=== PATIENT | male | born 1950 | race Caucasian/White ===

== ENCOUNTER 2017-03-04 08:00 | Emergency (ER) | payer MEDICARE ==
[2017-03-04 08:45] LABS: #Basophils 0.1 thou/uL (0.0-0.2); #Eosinphils 0.3 thou/uL (0.0-0.7); #Lymphocytes 1.4 thou/uL (1.20-3.40); #Monocytes 0.9 thou/uL (0.11-0.59); #Neutrophils 8.3 thou/uL (1.40-6.50); %Basophils 0.6 % (0.0-1.0); %Eosinophils 2.3 % (0.0-10.0); %Lymphocytes 12.3 % (21.0-51.0); %Monocytes 8.1 % (0.0-10.0); Hematocrit 35.1 % (42.0-52.0); Mean Platelet Volume 7.2 fL (7.4-10.4); Red Blood Cell (RBC) Count 4.08 mill/uL (4.70-6.10); White Blood Cell (WBC) Count 10.9 thou/uL (4.8-10.8)
[2017-03-04 08:49] LABS: PTT 42.8 SEC (22.9-36.1); Prothrombin Time 20.2 SEC (12.0-14.7)
[2017-03-04 09:04] LABS: ALT (SGPT) 39 U/L (8-55); AST (SGOT) 30 U/L (5-34); Alkaline Phosphatase 165 U/L (40-150); Anion Gap 14 mmol/L (10-20); BUN (Urea Nitrogen) 38 mg/dL (8.4-25.7); Bilirubin, Total 0.5 mg/dL (0.2-1.2); Calc. Creatinine Clearance 0 mL/min (70-130); Calcium 9.5 mg/dL (7.8-10.44); Carbon Dioxide 22 mmol/L (23-31); Chloride 109 mmol/L (98-107); Estimated GFR-MDRD 24; Globulin 3.6 g/dL (2.4-3.5); Protein, Total 7.4 g/dL (5.8-8.1)
[2017-03-04] MEDS ORDERED: Ondansetron ODT 8 MG TAB ONE (10:29)
--- NOTE | 2017-03-04 10:49 | RAD ---
RIGHT HAND 3 VIEWS: Date: 03/04/17 HISTORY: Swelling this morning. Patient has a history of recent blood clot removal. COMPARISON: None. FINDINGS: No fracture. No cortical irregularity. No periosteal reaction. There are degenerative changes involvi ng the first through fifth distal interphalangeal joints. IMPRESSION: Soft tissue swelling. POS: NETTA
--- NOTE | 2017-03-04 12:41 | ULT ---
VENOUS ULTRASOUND RIGHT UPPER EXTREMITY: Date: 03/04/17 INDICATION: Edema. History of deep venous thrombosis. FINDINGS: Appropriate compressibility and flow within the imaged deep vein system of the right upper extremity demonstrated. Doppler, color flow, and spectral analysis performed in addition to Javier scale imaging. IMPRESSION: No deep venous thrombosis imaged within the right upper extremity. POS: NETTA
== END 2017-03-04 11:06 | disposition home or self-care (01) ==
LOC: ERS 08:00
DX: M79.89 Other specified soft tissue disorders (principal); I25.10 Atherosclerotic heart disease of native coronary artery without angina pectoris; I48.91 Unspecified atrial fibrillation; E11.9 Type 2 diabetes mellitus without complications; I10 Essential (primary) hypertension; F43.10 Post-traumatic stress disorder, unspecified; Z79.82 Long term (current) use of aspirin; Z79.891 Long term (current) use of opiate analgesic; Z79.01 Long term (current) use of anticoagulants; Z79.899 Other long term (current) drug therapy
CPT/HCPCS: 36415; 80053; 85025; 85610; 85730; 86140

== ENCOUNTER 2017-06-09 18:45 | Emergency (ER) | payer MEDICARE ==
--- NOTE | 2017-06-09 20:30 | RAD ---
LEFT HAND THREE VIEW 06/09/17 HISTORY: Fall. COMPARISON: None. FINDINGS: There is a small piece of bone adjacent to the distal pole of the scaphoid. This is seen on the PA an d the oblique view, although not on the lateral view. This does not appear acute. Moderate degenerative disease in the interphalangeal joints of the digits. Mild vascular calcifications. IMPRESSION: Chronic findings. No displaced fracture or malalignment is appreciated. POS: HOME
== END 2017-06-09 19:40 | disposition home or self-care (01) ==
LOC: SCSER 18:45
DX: S60.212A Contusion of left wrist, initial encounter (principal); I25.10 Atherosclerotic heart disease of native coronary artery without angina pectoris; I48.91 Unspecified atrial fibrillation; E11.9 Type 2 diabetes mellitus without complications; I10 Essential (primary) hypertension; F43.10 Post-traumatic stress disorder, unspecified; Z79.82 Long term (current) use of aspirin; Z79.899 Other long term (current) drug therapy; Z79.01 Long term (current) use of anticoagulants; W19.XXXA Unspecified fall, initial encounter

== ENCOUNTER 2017-10-30 08:25 | Outpatient (CLI) | payer MEDICARE | END 2017-10-30 08:26 | disposition home or self-care (01) | LOC: BICMRI 08:25 | PROVIDERS: ATTEND Otolaryngology | DX: H90.3 Sensorineural hearing loss, bilateral (principal); J34.1 Cyst and mucocele of nose and nasal sinus; G93.89 Other specified disorders of brain | CPT/HCPCS: 70551; 82565 ==

== ENCOUNTER 2018-04-14 17:47 | Inpatient (IN) | payer MEDICARE ==
[2018-04-14 18:18] LABS: #Eosinphils 0.4 thou/uL (0.0-0.7); #Lymphocytes 1.6 thou/uL (1.20-3.40); #Neutrophils 7.5 thou/uL (1.40-6.50); %Basophils 0.4 % (0.0-1.0); %Eosinophils 3.3 % (0.0-10.0); %Lymphocytes 15.4 % (21.0-51.0); %Monocytes 9.9 % (0.0-10.0); Hemoglobin 7.3 g/dL (14.0-18.0); Mean Corpuscular HGB CONC 31.9 g/dL (32.0-36.0); Mean Corpuscular Hemoglobin 26.2 pg (27.0-31.0); Mean Corpuscular Volume 82.1 fL (78.0-98.0); Mean Platelet Volume 7.4 fL (7.4-10.4); Platelet Count 300 thou/uL (130-400); RBC Distribution Width 14.7 % (11.5-14.5); Red Blood Cell (RBC) Count 2.79 mill/uL (4.70-6.10); White Blood Cell (WBC) Count 10.6 thou/uL (4.8-10.8)
[2018-04-14 18:42] LABS: ALT (SGPT) 18 U/L (8-55); AST (SGOT) 15 U/L (5-34); Albumin 3.9 g/dL (3.4-4.8); Alkaline Phosphatase 136 U/L (40-150); Anion Gap 15 mmol/L (10-20); BUN (Urea Nitrogen) 55 mg/dL (8.4-25.7); Bilirubin, Total 0.4 mg/dL (0.2-1.2); CK (CPK) 62 U/L (30-200); Calc. Creatinine Clearance 0 mL/min (70-130); Carbon Dioxide 14 mmol/L (23-31); Chloride 116 mmol/L (98-107); Estimated GFR-MDRD 20; Glucose 141 mg/dL (80-115); Potassium 3.9 mmol/L (3.5-5.1); Protein, Total 6.9 g/dL (5.8-8.1); Sodium 141 mmol/L (136-145)
--- NOTE | 2018-04-14 18:56 | RAD ---
PORTABLE CHEST: 04/14/2018 PROVIDED CLINICAL HISTORY: Atrial fibrillation. COMPARISON: 04/15/2016 FINDINGS: The cardiac silhouette remains enlarged. Prominence of the pulmonary vasculature and pulmonary inter stitium. No focal consolidation, pleural fluid, or pneumothorax apparent. IMPRESSION: Cardiomegaly and findings suggesting congestive failure. POS: SONNY
[2018-04-14 19:00] LABS: Bilirubin Negative (Negative); Blood, Urine Negative (Negative); Clarity CLOUDY (Clear); Glucose, Urine (Dipstick) Negative (Negative); Leukocyte Large (Negative); Nitrite Negative (Negative); Protein, Urine (Dipstick) 30 mg/dL (Neg-Trace); Specific Gravity, Urine 1.012 (1.002-1.036); Urobilinogen 0.2 mg/dL (0.2-1.0); pH, Urine 5.5 (5.0-9.0)
[2018-04-14 19:02] LABS: Bacteria/HPF 2+ HPF (None Seen); Hyaline Casts/LPF 0-3 HYALINE CAST LPF (0-3 Hyaline); RBC/HPF 0-3 HPF (0-3); Squamous Epithelial 0-3 HPF (0-3); Yeast-AUWi Flag 30.2 (0-25.0)
[2018-04-14 19:12] LABS: Yeast-All Forms None Seen HPF (None Seen)
[2018-04-14] MEDS ORDERED: Dextrose 5% in Water 1,000 ML IV PRN (22:23)
[2018-04-14] MEDS ORDERED: HumaLOG 300 UNITS/3 ML VIAL SC PRN (22:23)
[2018-04-14] MEDS ORDERED: Dextrose 50% Abboject 50 ML SYRINGE SLOW IVP PRN (22:23)
[2018-04-14] MEDS ORDERED: Ondansetron ODT 4 MG TAB PO PRN (22:26)
[2018-04-14] MEDS ORDERED: Pantoprazole 40 MG VIAL IVP SCH (22:30)
[2018-04-14] MEDS ORDERED: traMADol HCl 50 MG TAB PO PRN (23:42)
[2018-04-14] MEDS ORDERED: Furosemide 20 MG TAB PO SCH (23:42)
--- NOTE | 2018-04-14 23:53 | HP ---
PRIMARY CARE PHYSICIAN: Dr. Guzman. CHIEF COMPLAINT: Weakness, dizziness. HISTORY OF PRESENT ILLNESS: Mr. Silva is a very pleasant 67-year-old male, who reports to the emergency room today with weakness that has lasted about 7 to 10 days. He denies any pain. He denies any injury or trauma. Reports that the last thing that took place prior to the symptoms was that he had his flu shot about 10 days ago. Denies any fever or any flu symptoms. Just reports a generalized weakness. Reports increasing dyspnea on exertion. Reports when he tries to get up and walk any distance, he has to sit down. He fatigues easily. He denies any changes to any eating or any stool changes. Does report that he has been on Xarelto for the last 2 years after he had a DVT in his right arm. Reports chronic kidney disease stage 4 that he follows with Dr. García. Reports that it has been maintained at stage 4 for the last [address] García in the last months. Reports that his hemoglobin was on the "low side." reports that it looks more pale than typical. Guaiac stool performed in the emergency room does report positive for occult blood. The patient's hemoglobin in the emergency room was also found to be 7.3, which is a drop from 11.5 on 08/27/2017. Based on symptoms and findings, the patient was admitted to the observation unit for further management. PAST MEDICAL HISTORY: 1. DVT to right arm. 2. Chronic kidney disease stage 4. 3. Diabetes mellitus type 2. 4. History of chronic atrial fibrillation, status post ablation. 5. History of Pseudomonas urinary tract infections in the past. 6. Hypertension. 7. Dyslipidemia. 8. Obesity. 9. History of TIA. PAST SURGICAL HISTORY: Ablation, persistent atrial fib, left knee surgery for meniscal repair, history of tonsillectomy, history of LASIK surgery in both eyes. He did have an embolectomy of the right brachial artery in April of 2016. FAMILY HISTORY: Unknown. Reports being adopted and is unfamiliar with his family history. 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 Smokes cigars. Drinks occasionally once or twice a week. He is , has 3 children. Otherwise retired and denies any drug use. ALLERGIES: TYLENOL AND CINNAMON. HOME MEDICATIONS: Include the following; 1. Lipitor 40 mg once a day. 2. Tramadol 50 mg q.4 hours as needed. 3. Xarelto 10 mg p.o. once a day. 4. Aspirin 81 mg p.o. daily. 5. Lasix 20 mg daily. 6. Diltiazem 120 mg p.o. daily. 7. Carvedilol 12.5 mg b.i.d. 8. Lantus 30 units subcu once a day. 9. Losartan 25 mg p.o. once a day. 10. Amlodipine 10 mg once a day. 11. Calcitriol 0.5 mg once a day. 12. Hydralazine 100 mg p.o. once a day. 13. Iron 27 mg p.o. daily. 14. Ambien 5 mg p.o. as needed. REVIEW OF SYSTEMS: CONSTITUTIONAL: The patient denies chills or fever. Does report generalized weakness. EYES: Denies eye pain, eye changes, vision changes. ENT: Denies sore throat. Reports a chronic rhinorrhea. CARDIOVASCULAR: Denies chest pain or palpitations. RESPIRATORY: Denies cough. Denies shortness of breath. Does report some TRAN. GASTROINTESTINAL: Denies any abdominal pain. Denies any constipation, diarrhea , nausea, vomiting. Denies any stool changes. GENITOURINARY: Male. Denies dysuria or hematuria. MUSCULOSKELETAL: Denies fall, injury, neck pain. SKIN: reports pallor. NEUROLOGIC: Denies a headache, any weakness, numbness, tingling. PHYSICAL EXAMINATION: VITAL SIGNS: Blood pressure 138/65, pulse is 72, respirations 20, temp is 98.3, pulse ox is 96% on room air. CONSTITUTIONAL: The patient appears nontoxic, appears pain free, is alert and oriented to person, place, and time. HEENT: Head is atraumatic and normocephalic. Eyes; normal to inspection. Extraocular muscles are intact. ENT; pharynx exam is normal. Mucous membranes are moist. Mouth exam is normal. NECK: Normal range of motion. Trachea is midline. No tenderness. RESPIRATORY: Chest, no respiratory distress. Breath sounds are clear. CARDIOVASCULAR: Regular rate and rhythm. Heart sounds are normal. ABDOMEN: Bowel sounds are heard. No tenderness on palpation. BACK: Normal inspection. Normal range of motion. No tenderness. EXTREMITIES: Upper extremities, motor strength is normal. Sensation intact. Radial pulses normal bilaterally. Lower extremities, normal range of motion. Motor strength is normal. Sensation intact. Pedal pulses equal bilaterally. Trace edema is noted bilaterally. NEUROLOGIC: Oriented to person, place, and time. Speech is normal. Gait is normal. SKIN: Warm, dry, normal in color. No rash. DIAGNOSTIC DATA: EKG, normal sinus rhythm, beats per minute is 61. Conduction is normal. ST segments are normal. T-waves are normal. Lamont is normal. RADIOLOGY: Cardiomegaly, findings suggestive of congestive heart failure. PERTINENT LABS: Patient is B positive. Occult blood is positive. UA, positive for leukocytes, white blood cell count, bacteria +2. We will send that off for culture. BNP is 199. CK is 62. Sodium 141, potassium 3.9, chloride 116, BUN is 55, creatinine is 3.11, estimated GFR is 20, glucose is 141. White blood cell count is 10.6, red blood cell count is 2.79, hemoglobin 7.3, hematocrit 22.9, and platelet count is 300. ASSESSMENT AND PLAN: 1. Symptomatic anemia. Hemoglobin dropped to 7.3 from 11, six months ago. We will hold Xarelto. We will infuse 1 unit of packed red blood cells. We will give Protonix b.i.d. In light of positive occult blood, we will ask GI to consult. 2. Gastrointestinal bleed. Plan as above. We will also obtain iron, ferritin levels in the morning. We will repeat CBC after the blood has infused. 3. Hypertension. We will continue home medication. 4. Diabetes. We will continue home insulin. Check blood sugar before meals and at bedtime. We will add a mild sliding scale insulin as needed for coverage. 5. Chronic kidney disease. GFR appears stable. We will continue to monitor. We will involve Dr. García as necessary. 6. CHF, we will monitor, give lasix tonight if he hasn't had his daily dose 7. UA positive for WBC, leukocytes, bacteria. Will send for culture and start Rocephin daily. Hospital course is dependent on clinical findings. Job ID: [id number] [facility]
[2018-04-14] MEDS ORDERED: Zolpidem Tartrate 5 MG TAB PO PRN (23:59)
[2018-04-15 00:22] VITALS: BMI 41.5
[2018-04-15] MEDS ORDERED: Carvedilol 6.25 MG TAB PO SCH ×2 (00:45→09:00)
[2018-04-15] MEDS ORDERED: hydrALAZINE 25 MG TAB PO SCH ×2 (00:45→09:00)
[2018-04-15] MEDS ORDERED: Furosemide 20 MG TAB PO SCH ×2 (00:45→18:00)
[2018-04-15] MEDS: cefTRIAXone\\ROCEPHIN 1 GM in Sodium Chloride 0.9% 100 ML IVPB SCH ×2 (01:16→23:27)
[2018-04-15 02:21] LABS: #Basophils 0.1 thou/uL (0.0-0.2); #Eosinphils 0.3 thou/uL (0.0-0.7); #Lymphocytes 1.2 thou/uL (1.20-3.40); %Basophils 0.8 % (0.0-1.0); %Eosinophils 2.7 % (0.0-10.0); %Lymphocytes 11.7 % (21.0-51.0); %Monocytes 9.3 % (0.0-10.0); %Neutrophils 75.5 % (42.0-75.0); Hemoglobin 7.6 g/dL (14.0-18.0); Mean Corpuscular HGB CONC 31.3 g/dL (32.0-36.0); Mean Corpuscular Hemoglobin 26.8 pg (27.0-31.0); Mean Corpuscular Volume 85.5 fL (78.0-98.0); Mean Platelet Volume 7.1 fL (7.4-10.4); Platelet Count 246 thou/uL (130-400); RBC Distribution Width 14.4 % (11.5-14.5); Red Blood Cell (RBC) Count 2.83 mill/uL (4.70-6.10); White Blood Cell (WBC) Count 10.6 thou/uL (4.8-10.8)
[2018-04-15 02:58] LABS: ALT (SGPT) 16 U/L (8-55); AST (SGOT) 11 U/L (5-34); Albumin 3.3 g/dL (3.4-4.8); Alkaline Phosphatase 113 U/L (40-150); Anion Gap 14 mmol/L (10-20); BUN (Urea Nitrogen) 50 mg/dL (8.4-25.7); Bilirubin, Total 0.4 mg/dL (0.2-1.2); Calc. Creatinine Clearance 47 mL/min (70-130); Calcium 8.3 mg/dL (7.8-10.44); Carbon Dioxide 14 mmol/L (23-31); Chloride 118 mmol/L (98-107); Estimated GFR-MDRD 21; Globulin 2.4 g/dL (2.4-3.5); Glucose 150 mg/dL (80-115); Iron 23 ug/dL (65-175); Iron Binding Capacity, Total 334 mcg/dL (261-462); Potassium 3.6 mmol/L (3.5-5.1); Protein, Total 5.7 g/dL (5.8-8.1); Sodium 142 mmol/L (136-145)
[2018-04-15 06:33] LABS: Hemoglobin 7.5 g/dL (14.0-18.0)
[2018-04-15] MEDS: Pantoprazole 40 MG VIAL IVP SCH ×2 (08:55→20:59)
[2018-04-15] MEDS: Insulin Glargine 30 UNITS in Pre-Filled Syringe 1 EACH SC SCH (09:00)
[2018-04-15] MEDS: Ferrous Sulfate 325 MG TAB PO SCH (09:00)
[2018-04-15] MEDS: Loratadine 10 MG TAB PO SCH (09:00)
[2018-04-15] MEDS ORDERED: Prevnar 13-Val Conj/PF 0.5 ML SYRINGE IM ONE (09:00)
[2018-04-15] MEDS ORDERED: Amlodipine 10 MG TAB PO SCH (09:00)
[2018-04-15] MEDS ORDERED: Losartan 25 MG TAB PO SCH (09:00)
[2018-04-15] MEDS ORDERED: Aspirin 81 mg Enteric Coated Tablet PO SCH (09:00)
[2018-04-15] MEDS ORDERED: INSULIN GLARGINE HUM REC ANLOG 30 UNIT SC SCH (09:00)
[2018-04-15] MEDS ORDERED: Calcitriol 0.25 MCG CAP PO SCH (09:00)
[2018-04-15 12:32] LABS: Hemoglobin 7.9 g/dL (14.0-18.0)
--- NOTE | 2018-04-15 14:12 | PDOC.PN ---
- Subjective Encounter Start Date: 04/15/18 Encounter Start Time: 14:11 Patient lying in bed, he reports feeling better today. Hgb improved s/p unit of PRBC, 7.9 this morning. Cr improved but elevated at 2.99. He denies chest pain, shortness of breath or abdominal pain. - Objective MAR Reviewed: Yes Vital Signs & Weight: Vital Signs (12 hours) Temp Pulse Resp BP BP Pulse Ox 04/15/18 11:03 97.5 F L 66 20 142/65 H 97 04/15/18 08:02 98.1 F 64 20 147/67 H 97 04/15/18 05:57 62 146/67 H 04/15/18 04:20 98.7 F 61 18 109/74 97 Weight Weight 297 lb 9.6 oz I&O: 04/14/18 04/15/18 04/16/18 06:59 06:59 06:59 Intake Total 1010 Output Total 975 Balance 35 Result Diagrams: 04/15/18 12:04 04/15/18 02:11 Additional Labs: Accuchecks 04/15/18 04/15/18 11:07 05:57 POC Glucose 114 H 120 H Radiology Reviewed by me: Yes Phys Exam - Physical Examination Constitutional: NAD HEENT: PERRLA, moist MMs, oral pharynx no lesions Neck: no nodes, no JVD, supple Respiratory: no wheezing, no rales, no rhonchi, clear to auscultation bilateral Cardiovascular: RRR, no significant murmur, no rub Gastrointestinal: soft, non-tender, no distention, positive bowel sounds obese Musculoskeletal: no edema, pulses present Neurological: non-focal, normal sensation, moves all 4 limbs Lymphatic: no nodes Psychiatric: normal affect, A&O x 3 Skin: no rash, normal turgor, cap refill <2 seconds Dx/Plan (1) GI bleed Code(s): K92.2 - GASTROINTESTINAL HEMORRHAGE, UNSPECIFIED Status: Acute (2) CKD stage 4 due to type 2 diabetes mellitus Code(s): E11.22 - TYPE 2 DIABETES MELLITUS W DIABETIC CHRONIC KIDNEY DISEASE; N18.4 - CHRONIC KIDNEY DISEASE, STAGE 4 (SEVERE) Status: Acute (3) UTI (lower urinary tract infection) Code(s): N39.0 - URINARY TRACT INFECTION, SITE NOT SPECIFIED Status: Acute (4) HTN (hypertension) Code(s): I10 - ESSENTIAL (PRIMARY) HYPERTENSION Status: Chronic Qualifiers: Hypertension type: essential hypertension Qualified Code(s): I10 - Essential (primary) hypertension (5) CHF (congestive heart failure) Code(s): I50.9 - HEART FAILURE, UNSPECIFIED Status: Suspected Qualifiers: Qualified Code(s): I50.9 - Heart failure, unspecified - Plan cont current plan of care, continue antibiotics, PT/OT * Hold anticoagulation at this time * Await recs per GI services * Nephrology consulted as patient creatinine remains elevated * Continue other home medications * Continue antibiotics for now, await urine culture * Monitor vitals and labs, transfuse as needed for Hgb <7.0
[2018-04-15] MEDS ORDERED: GoLYTELY 4,000 ml Bottle PO SCH (18:00)
--- NOTE | 2018-04-15 20:27 | CON ---
DATE OF CONSULTATION: 04/15/2018 REQUESTING PHYSICIAN: JEVON Robles. REASON FOR CONSULTATION: Anemia and positive FOBT. HISTORY OF PRESENT ILLNESS: Addison Silva is a very pleasant 67-year-old man with chronic kidney disease stage 4, not on dialysis. He is also on long-term Xarelto for the past couple of years due to history of right upper extremity DVT. He is obese with diabetes and hypertension as well. He has no past gastrointestinal history. He has never undergone EGD or colonoscopy. He denies any gastrointestinal symptoms including loss of appetite, nausea, vomiting, abdominal pain, diarrhea, constipation, melena, or hematochezia. He has had no overt bleeding from anywhere and his weight has been stable. Note, his hemoglobin was about 11, six months ago. He presented to the hospital with basically 7-10 days of progressive weakness and dyspnea upon even limited exertion and he was found to have significant anemia with hemoglobin 7.3. Again, this is down from about 11 six months ago. He has received 1 unit RBC transfusion, the hemoglobin came up to 7.9. This is a normocytic anemia with MCV 85.5 and note ferritin is normal at 14. He is not sure of his family history because he is adopted. He is currently asymptomatic, feeling a bit better after transfusion, still feeling weak. REVIEW OF SYSTEMS: Full review of systems including constitutional, head, eyes, ears, nose, throat, GI, , cardiovascular, respiratory, musculoskeletal, and neurologic systems is negative except as noted in the HPI. PAST MEDICAL HISTORY: Chronic kidney disease stage 4; chronic anemia; DVT, right upper extremity, on Xarelto; obesity; diabetes; hypertension; hyperlipidemia; history of TIA; atrial fibrillation status post ablation procedure; left knee surgery; LASIK surgery in both eyes; embolectomy, right brachial artery, 04/2016. FAMILY HISTORY: Unknown due to his being adopted. 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 He does smoke cigars. Alcohol use is occasional. No drug use. ALLERGIES: TYLENOL AND CINNAMON. HOME MEDICATIONS: 1. Lipitor. 2. Tramadol. 3. Xarelto. 4. Aspirin 81 mg daily. 5. Lasix. 6. Diltiazem. 7. Carvedilol. 8. Lantus insulin. 9. Losartan. 10. Amlodipine. 11. Calcitriol. 12. Hydralazine. 13. Iron 27 mg daily. 14. Ambien 5 mg as needed. PHYSICAL EXAMINATION: VITAL SIGNS: Temperature 97.5, pulse 66, blood pressure 142/65, and 97% oxygen saturation on room air. GENERAL: An obese 67-year-old man sitting up in bed comfortably in no acute distress. SKIN: He is pale. No jaundice. No rashes were palpable. EYES: No scleral icterus. Extraocular movements intact. ENT: Mucous membranes moist. No oral lesions. LYMPH: No submandibular or supraclavicular lymphadenopathy. Thyroid nontender to palpation. HEART: Regular rate and rhythm. LUNGS: Clear to auscultation bilaterally. ABDOMEN: Obese. Bowel sounds present. Soft, nontender to deep palpation throughout. No masses or organomegaly appreciated. No guarding or rebound tenderness. EXTREMITIES: No peripheral edema. VESSELS: Radial pulses 2+ bilaterally. NEURO: Cranial nerves 2 through 12 intact bilaterally. No focal deficits. LABORATORY STUDIES: Hemoglobin up to 7.9, MCV is normal at 85.5, WBC 10.6, platelets 246. Sodium 142, potassium 3.6, BUN 50, creatinine 2.99, glucose 114. Ferritin is 24, iron 23, TIBC 334. Total bilirubin 0.4, alkaline phosphatase 113, AST 11, ALT 16. BNP is 199.4, albumin 3.3. Urinalysis shows greater than 50 wbc's and positive leukocyte esterase. FOBT is positive. IMAGING STUDIES: Chest x-ray shows cardiomegaly and prominence of the pulmonary vasculature. ASSESSMENT AND PLAN: 1. Chronic anemia, recent worsening over the past few months, symptomatic, normocytic. 2. Heme-positive stool. 3. History of deep venous thromboses, on long-term Xarelto. The patient has had a clear decline in hemoglobin over the past few months, in the context of chronic kidney disease and Xarelto use, without any overt evidence of bleeding. I did discuss with the patient that occult gastrointestinal lesion certainly needs to be ruled out. We will plan for diagnostic EGD and colonoscopy tomorrow. Xarelto is already being held. The patient understands and desires to proceed. Thank you for the consultation. Please call anytime for questions or concerns. Job ID: [id number]
[2018-04-15 20:56] LABS: Hemoglobin 8.3 g/dL (14.0-18.0)
[2018-04-15] MEDS: Atorvastatin Calcium 40 MG TAB PO SCH (20:57)
[2018-04-15 23:58] LABS: Hemoglobin 7.3 g/dL (14.0-18.0)
--- NOTE | 2018-04-16 00:19 | CON ---
DATE OF CONSULTATION: 04/15/2018 CONSULTING PHYSICIAN: Dr. Tatum. REASON FOR CONSULT: Chronic kidney disease. REASON FOR ADMISSION: Weakness. HISTORY OF PRESENT ILLNESS: This is a 67-year-old white male with history of DVT, CKD, type 2 diabetes, hypertension, hyperlipidemia, who came to the hospital with weakness and was found to have anemia and GI bleed, has been having evaluation and Nephrology consulted for elevated creatinine. The patient denies any nausea or vomiting. No chest pain or palpitations. PAST MEDICAL HISTORY: Positive for DVT, chronic kidney disease, type 2 diabetes, atrial fibrillation, hypertension, hyperlipidemia, obesity, and TIA. PAST SURGICAL HISTORY: Atrial ablation, left knee surgery, tonsillectomy and LASIK surgery. HOME MEDICATIONS: 1. Toujeo. 2. Calcitriol. 3. Cozaar. 4. Iron. 5. Tramadol. 6. Lipitor. 7. Hydralazine. 8. Diltiazem. 9. Ecotrin. 10. Xarelto. 11. Furosemide. 12. Zolpidem. 13. Cetirizine. 14. Amlodipine. 15. Carvedilol. ALLERGIES: TYLENOL AND CINNAMON. SOCIAL HISTORY: No smoking, alcohol or illicit drugs. FAMILY HISTORY: No history of any kidney disease. REVIEW OF SYSTEMS: CONSTITUTIONAL: Negative for weight loss or gain, ability to conduct usual activities. SKIN: Negative for rash, itching. EYES: Negative for double vision, pain. ENT/MOUTH: Negative for nose bleeding, neck stiffness, pain, tenderness. CARDIOVASCULAR: Negative for palpitations, dyspnea on exertion, orthopnea. RESPIRATORY: Negative for shortness of breath, wheezing, cough, hemoptysis, fever or night sweats. GASTROINTESTINAL: Negative for poor appetite, abdominal pain, heartburn, nausea, vomiting, constipation, or diarrhea. GENITOURINARY: Negative for urgency, frequency, dysuria, nocturia. MUSCULOSKELETAL: Negative for pain, swelling. NEUROLOGIC/PSYCHIATRIC: Negative for anxiety, depression. ALLERGY/IMMUNOLOGIC: Negative for skin rash, bleeding tendency. PHYSICAL EXAMINATION: GENERAL: This is a well-built male, in no apparent distress. VITAL SIGNS: Temperature 98.2, pulse 69, respiratory rate 18, blood pressure 142/65. HEENT: Atraumatic and normocephalic. Oral mucosa is moist. NECK: Supple. CARDIOVASCULAR: S1 and S2 heard. Rate and rhythm regular. RESPIRATORY: Clear. GASTROINTESTINAL: Abdomen is soft. MUSCULOSKELETAL: No evidence of edema. DERMATOLOGIC: No skin rash. NEUROLOGIC: Alert and awake. PSYCHIATRIC: Mood and affect normal. LABORATORY DATA: Hemoglobin 7.3, potassium 3.6, BUN 50, creatinine 2.9. ASSESSMENT AND PLAN: 1. Chronic kidney disease, stage IV, stable. 2. Anemia. Agree with GI evaluation and rule out bleed. 3. Edema, controlled. 4. Hypertension, stable. 5. Metabolic acidosis. We will monitor. We will add bicarb as tolerated. 6. Agree with GI workup and we will continue to follow. Job ID: [id number]
[2018-04-16 07:09] LABS: #Basophils 0.1 thou/uL (0.0-0.2); #Eosinphils 0.2 thou/uL (0.0-0.7); #Lymphocytes 1.4 thou/uL (1.20-3.40); #Monocytes 1.2 thou/uL (0.11-0.59); #Neutrophils 6.5 thou/uL (1.40-6.50); %Basophils 0.6 % (0.0-1.0); %Eosinophils 2.3 % (0.0-10.0); %Lymphocytes 15.3 % (21.0-51.0); %Monocytes 12.6 % (0.0-10.0); %Neutrophils 69.3 % (42.0-75.0); Hemoglobin 7.5 g/dL (14.0-18.0); Mean Corpuscular HGB CONC 31.2 g/dL (32.0-36.0); Mean Corpuscular Hemoglobin 26.9 pg (27.0-31.0); Mean Corpuscular Volume 86.1 fL (78.0-98.0); Mean Platelet Volume 7.4 fL (7.4-10.4); Platelet Count 276 thou/uL (130-400); RBC Distribution Width 14.6 % (11.5-14.5); White Blood Cell (WBC) Count 9.5 thou/uL (4.8-10.8)
[2018-04-16 07:31] LABS: ALT (SGPT) 15 U/L (8-55); AST (SGOT) 14 U/L (5-34); Albumin 3.5 g/dL (3.4-4.8); Alkaline Phosphatase 134 U/L (40-150); Anion Gap 16 mmol/L (10-20); BUN (Urea Nitrogen) 32 mg/dL (8.4-25.7); Bilirubin, Total 0.5 mg/dL (0.2-1.2); Calc. Creatinine Clearance 55 mL/min (70-130); Calcium 8.6 mg/dL (7.8-10.44); Carbon Dioxide 15 mmol/L (23-31); Chloride 116 mmol/L (98-107); Estimated GFR-MDRD 25; Globulin 2.6 g/dL (2.4-3.5); Glucose 83 mg/dL (80-115); Potassium 3.6 mmol/L (3.5-5.1); Protein, Total 6.1 g/dL (5.8-8.1); Sodium 143 mmol/L (136-145)
[2018-04-16] MEDS: Loratadine 10 MG TAB PO SCH (08:22)
[2018-04-16] MEDS: Insulin Glargine 30 UNITS in Pre-Filled Syringe 1 EACH SC SCH (08:22)
[2018-04-16] MEDS: Ferrous Sulfate 325 MG TAB PO SCH (08:22)
[2018-04-16] MEDS ORDERED: Calcitriol 0.25 MCG CAP PO SCH (09:00)
[2018-04-16] MEDS: Pantoprazole 40 MG VIAL IVP SCH ×2 (09:11→21:21)
[2018-04-16] MEDS ORDERED: Promethazine HCl 25 MG/ML VIAL IM PRN (11:10)
[2018-04-16] MEDS ORDERED: Ondansetron HCl/PF 4 MG/2 ML Vial IVP PRN (11:10)
[2018-04-16] MEDS ORDERED: Promethazine HCl 25 MG/ML VIAL SLOW IVP PRN (11:10)
--- NOTE | 2018-04-16 15:58 | OP ---
DATE OF PROCEDURE: 04/16/2018 PROCEDURES PERFORMED: Esophagogastroduodenoscopy with biopsy and colonoscopy with snare polypectomy. PREOPERATIVE DIAGNOSES: Anemia and Hemoccult-positive stool on chronic anticoagulation. DESCRIPTION OF PROCEDURE: Informed consent was obtained from the patient. He was sedated with total intravenous anesthesia. The endoscope was advanced easily to the second portion of the duodenum and retroflexion was performed in the stomach. Shortly after inserting the upper endoscope, the patient went into an irregular rhythm with a rapid ventricular response with a pulse in the 160s. The patient was given a dose of esmolol and he went back to a sinus rhythm in the 70s. The upper endoscopy was then completed. The esophagus had a slight narrowing in the distal esophagus. The GE junction was otherwise unremarkable. The stomach had multiple ulcers measuring 6 to 7 mm in the antrum. There was erosive duodenitis in the first portion of the duodenum. The second portion of the duodenum was normal. Retroflex views in the stomach were normal. There was a small hiatal hernia present. Biopsies were obtained from the stomach to rule out H. pylori. The patient was turned around. Rectal exam was performed and revealed some solid stool in the rectal vault. The colonoscope was then advanced to the proximal ascending colon. The cecum was only partially visualized. The tip of the cecum could not be reached with the endoscope due to looping in the colon. There was a small 7 mm arteriovenous malformation in the proximal ascending colon, which was left alone. There was no evidence of recent bleeding with this. A 4 mm polyp was visualized around the hepatic flexure, I believe distal to the hepatic flexure on insertion; however, on multiple passages of the scope through this area, I could not reidentify that polyp. There was a 4 mm polyp, that I removed by cold snare polypectomy from the distal transverse colon. There was mild diverticulosis of the left colon. Retroflex views and rectal views were not obtained due to solid stool in the rectal vault. The preparation quality was fair at best. IMPRESSION: 1. Multiple gastric ulcers measuring 6 to 7 mm in the antrum. Erosive duodenitis. This likely explains the patient's anemia on Xarelto. Biopsies were obtained to rule out H. pylori. 2. Mild narrowing of the distal esophagus with a small hiatal hernia. This was left alone. 3. Otherwise normal esophagogastroduodenoscopy. 4. Left colon diverticulosis. 5. A 4 mm distal transverse polyp removed with a cold snare. 6. Small AVM in the proximal ascending colon without stigmata of recent bleeding, which was left alone. 7. Fair prep at best. The exam was incomplete to the proximal ascending colon. I could not sink the colonoscope to the tip of the cecum. This is mostly due to looping. The patient is obese and has a significant cough. The patient did also desaturate during the colonoscopy and became bradycardic briefly and this was corrected with bag ventilation briefly. 8. Rectal views were obstructed with stool. RECOMMENDATIONS: 1. Await histopathology. 2. Transfuse as necessary. 3. Proton pump inhibitor twice daily orally for a couple of weeks and then back off to once daily. 4. Repeat colonoscopy can be considered of the next year in the hospital setting for completion, depending on the patient's clinical course. Job ID: [id number]
[2018-04-16] MEDS ORDERED: Lidocaine 1% PF 5 ML VIAL ONE (16:18)
[2018-04-16] MEDS ORDERED: PROPOFOL 200 MG/20 ML VIAL ONE (16:18)
[2018-04-16] MEDS ORDERED: Esmolol 100 MG/10 ML VIAL ONE (16:18)
--- NOTE | 2018-04-16 16:30 | PDOC.EVN ---
Event Note - Event Note Event Note: discussed with Tomasa COREY, agree with management
--- NOTE | 2018-04-16 16:43 | PDOC.PN ---
- Subjective Encounter Start Date: 04/16/18 Encounter Start Time: 16:41 Patient lying in bed this morning, denied chest pain or shortness of breath. He underwent EGD and colonoscopy which showed multiple ulcers. - Objective MAR Reviewed: Yes Vital Signs & Weight: Vital Signs (12 hours) Temp Pulse Resp BP Pulse Ox 04/16/18 15:51 98.5 F 79 20 162/73 H 98 04/16/18 11:40 97.9 F 78 20 158/67 H 95 04/16/18 07:22 98.5 F 63 20 160/74 H 98 Weight Weight 297 lb 9.6 oz I&O: 04/15/18 04/16/18 04/17/18 06:59 06:59 06:59 Intake Total 1010 1600 Output Total 975 1550 Balance 35 50 Result Diagrams: 04/16/18 06:23 04/16/18 06:23 Additional Labs: Accuchecks 04/16/18 04/15/18 04/15/18 11:52 20:07 16:42 POC Glucose 120 H 126 H 160 H Radiology Reviewed by me: Yes Phys Exam - Physical Examination Constitutional: NAD HEENT: PERRLA, moist MMs, oral pharynx no lesions Neck: no nodes, no JVD, supple Respiratory: no wheezing, no rales, no rhonchi, clear to auscultation bilateral Cardiovascular: RRR, no significant murmur, no rub Gastrointestinal: soft, non-tender, no distention, positive bowel sounds Morbid obese Musculoskeletal: no edema, pulses present Neurological: non-focal, normal sensation, moves all 4 limbs Lymphatic: no nodes Psychiatric: normal affect, A&O x 3 Skin: no rash, normal turgor, cap refill <2 seconds Dx/Plan (1) GI bleed Code(s): K92.2 - GASTROINTESTINAL HEMORRHAGE, UNSPECIFIED Status: Acute (2) CKD stage 4 due to type 2 diabetes mellitus Code(s): E11.22 - TYPE 2 DIABETES MELLITUS W DIABETIC CHRONIC KIDNEY DISEASE; N18.4 - CHRONIC KIDNEY DISEASE, STAGE 4 (SEVERE) Status: Acute (3) UTI (lower urinary tract infection) Code(s): N39.0 - URINARY TRACT INFECTION, SITE NOT SPECIFIED Status: Acute (4) HTN (hypertension) Code(s): I10 - ESSENTIAL (PRIMARY) HYPERTENSION Status: Chronic Qualifiers: Hypertension type: essential hypertension Qualified Code(s): I10 - Essential (primary) hypertension (5) CHF (congestive heart failure) Code(s): I50.9 - HEART FAILURE, UNSPECIFIED Status: Suspected Qualifiers: Qualified Code(s): I50.9 - Heart failure, unspecified - Plan cont current plan of care * EGD displayed several ulcers, await biopsy results * Hold anticoagulation, recommend patient 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
--- NOTE | 2018-04-16 20:35 | PRG ---
DATE OF SERVICE: 04/16/2018 SUBJECTIVE: Patient was seen and examined at bedside and overnight events noted. Patient denies any shortness of breath or chest pain or palpitation. No history of nausea or vomiting or diarrhea or fever or chills or cramps. OBJECTIVE: GENERAL: This is an obese male in no acute distress. VITAL SIGNS: Temperature , pulse 79, respiratory rate 20, blood pressure 162/73. HEENT: Atraumatic, normocephalic. Oral mucosa is moist NECK: Supple. CARDIOVASCULAR: S1, S2 heard. Rate and rhythm regular. RESPIRATORY: Clear to auscultation. GASTROINTESTINAL: Abdomen is soft. MUSCULOSKELETAL: No tenderness. No edema. DERMATOLOGIC: No skin rash. NEUROLOGIC: Alert and awake and oriented X3. No focal neurologic deficits. Moving all the extremities. PSYCHIATRIC: Mood and affect normal. LABORATORY DATA: Potassium 3.6, BUN is 32, creatinine is 2.5. ASSESSMENT AND PLAN: 1. Chronic kidney disease, stage IV, stable. 2. Anemia. 3. Edema, controlled. 4. Hypertension. 5. Metabolic acidosis. We will monitor. 6. We will continue to monitor, avoid nephrotoxins. Job ID: [id number]
[2018-04-16] MEDS ORDERED: HumaLOG 300 UNITS/3 ML VIAL SC PRN (21:05)
[2018-04-16] MEDS: Atorvastatin Calcium 40 MG TAB PO SCH (21:11)
[2018-04-16] MEDS: cefTRIAXone\\ROCEPHIN 1 GM in Sodium Chloride 0.9% 100 ML IVPB SCH (23:05)
[2018-04-17 05:53] LABS: #Basophils 0.1 thou/uL (0.0-0.2); #Eosinphils 0.4 thou/uL (0.0-0.7); #Lymphocytes 1.7 thou/uL (1.20-3.40); #Monocytes 1.5 thou/uL (0.11-0.59); #Neutrophils 7.8 thou/uL (1.40-6.50); %Basophils 0.7 % (0.0-1.0); %Eosinophils 3.5 % (0.0-10.0); %Lymphocytes 14.6 % (21.0-51.0); %Monocytes 12.7 % (0.0-10.0); %Neutrophils 68.5 % (42.0-75.0); Hemoglobin 7.5 g/dL (14.0-18.0); Mean Corpuscular HGB CONC 31.3 g/dL (32.0-36.0); Mean Corpuscular Hemoglobin 26.5 pg (27.0-31.0); Mean Corpuscular Volume 84.7 fL (78.0-98.0); Mean Platelet Volume 7.5 fL (7.4-10.4); Platelet Count 286 thou/uL (130-400); RBC Distribution Width 14.8 % (11.5-14.5); Red Blood Cell (RBC) Count 2.83 mill/uL (4.70-6.10); White Blood Cell (WBC) Count 11.4 thou/uL (4.8-10.8)
[2018-04-17 06:09] LABS: Anion Gap 12 mmol/L (10-20); BUN (Urea Nitrogen) 28 mg/dL (8.4-25.7); Calc. Creatinine Clearance 56 mL/min (70-130); Calcium 8.7 mg/dL (7.8-10.44); Carbon Dioxide 19 mmol/L (23-31); Chloride 115 mmol/L (98-107); Estimated GFR-MDRD 26; Glucose 100 mg/dL (80-115); Potassium 3.6 mmol/L (3.5-5.1); Sodium 142 mmol/L (136-145)
[2018-04-17] MEDS: Ferrous Sulfate 325 MG TAB PO SCH (08:56)
[2018-04-17] MEDS: Pantoprazole 40 MG VIAL IVP SCH (08:56)
[2018-04-17] MEDS: Loratadine 10 MG TAB PO SCH (08:56)
[2018-04-17] MEDS: Insulin Glargine 30 UNITS in Pre-Filled Syringe 1 EACH SC SCH (08:57)
[2018-04-17 12:18] VITALS: BP 172/77; TEMP 99.3
--- NOTE | 2018-04-17 15:11 | PRG ---
DATE OF SERVICE: 04/17/2018 SUBJECTIVE: Patient was seen and examined at bedside and overnight events noted. Patient denies any shortness of breath or chest pain or palpitation. No history of nausea or vomiting or diarrhea or fever or chills or cramps. OBJECTIVE: GENERAL: This is a well-built male, in no apparent distress. VITAL SIGNS: Temperature 98.2. Heart [id number]. Respiratory rate 22. Blood pressure 170/78. HEENT: Atraumatic, normocephalic. Oral mucosa is moist NECK: Supple. CARDIOVASCULAR: S1, S2 heard. Rate and rhythm regular. RESPIRATORY: Clear to auscultation. GASTROINTESTINAL: Abdomen is soft. MUSCULOSKELETAL: No tenderness. No edema. DERMATOLOGIC: No skin rash. NEUROLOGIC: Alert and awake and oriented X3. No focal neurologic deficits. Moving all the extremities. PSYCHIATRIC: Mood and affect normal. LABORATORY DATA: Potassium is 3.6, BUN is 28, creatinine is 2.5. ASSESSMENT: 1. Chronic kidney disease, stage 4, stable. 2. Anemia, status post scope and gastric ulcer. 3. Edema. 4. Hypertension. 5. Metabolic acidosis. PLAN: Labs are stable, will monitor.. Job ID: [id number]
== END 2018-04-17 14:49 | disposition home or self-care (01) | DRG 383 ==
LOC: ERS 17:47 → 2SW 20:25 → OBSVTOIN 04-16 10:30
PROVIDERS: ADMIT Hospitalist; ATTEND Hospitalist
PROC: 30233N1 Transfusion of Nonautologous Red Blood Cells into Peripheral Vein, Percutaneous Approach (ICD-10-PCS; 2018-04-14)
PROC: 0DB68ZX Excision of Stomach, Via Natural or Artificial Opening Endoscopic, Diagnostic (ICD-10-PCS; principal; 2018-04-16)
PROC: 0DBL8ZX Excision of Transverse Colon, Via Natural or Artificial Opening Endoscopic, Diagnostic (ICD-10-PCS; 2018-04-16)
DX: K25.9 Gastric ulcer, unspecified as acute or chronic, without hemorrhage or perforation (principal); K56.2 Volvulus; N18.4 Chronic kidney disease, stage 4 (severe); Z68.41 Body mass index [BMI] 40.0-44.9, adult; I13.0 Hypertensive heart and chronic kidney disease with heart failure and stage 1 through stage 4 chronic kidney disease, or unspecified chronic kidney disease; E87.2 Acidosis; N39.0 Urinary tract infection, site not specified; K29.80 Duodenitis without bleeding; K63.5 Polyp of colon; I50.9 Heart failure, unspecified; E11.22 Type 2 diabetes mellitus with diabetic chronic kidney disease; I48.2 Chronic atrial fibrillation; E78.5 Hyperlipidemia, unspecified; D63.8 Anemia in other chronic diseases classified elsewhere; E66.9 Obesity, unspecified; F17.290 Nicotine dependence, other tobacco product, uncomplicated; K44.9 Diaphragmatic hernia without obstruction or gangrene; Q27.33 Arteriovenous malformation of digestive system vessel; K57.30 Diverticulosis of large intestine without perforation or abscess without bleeding; R00.1 Bradycardia, unspecified; Z86.73 Personal history of transient ischemic attack (TIA), and cerebral infarction without residual deficits; Z79.4 Long term (current) use of insulin; Z86.718 Personal history of other venous thrombosis and embolism; Z79.01 Long term (current) use of anticoagulants; Z87.440 Personal history of urinary (tract) infections; Z79.899 Other long term (current) drug therapy; Z79.82 Long term (current) use of aspirin; Z88.8 Allergy status to other drugs, medicaments and biological substances
CPT/HCPCS: 36415; 36416; 36430; 71045; 80048; 80053; 81003; 81015; 82274; 82550; 82728; 83540; 83550; 83880; 85025; 86850; 86900; 86901; 87077; 87086; 87186; 88305; 88312; 90471; 90670; 93005; C9113; G0009; J0696; J2001; J2704; J7050; P9016

== ENCOUNTER 2018-05-19 21:22 | Inpatient (IN) | payer MEDICARE ==
[2018-05-19 21:55] LABS: #Basophils 0.1 thou/uL (0.0-0.2); #Eosinphils 0.5 thou/uL (0.0-0.7); #Lymphocytes 1.6 thou/uL (1.20-3.40); #Monocytes 0.9 thou/uL (0.11-0.59); #Neutrophils 6.8 thou/uL (1.40-6.50); %Basophils 0.7 % (0.0-1.0); %Eosinophils 4.9 % (0.0-10.0); %Lymphocytes 16.1 % (21.0-51.0); %Monocytes 9.4 % (0.0-10.0); %Neutrophils 68.8 % (42.0-75.0); Hemoglobin 10.5 g/dL (14.0-18.0); Mean Corpuscular HGB CONC 30.1 g/dL (32.0-36.0); Mean Corpuscular Hemoglobin 25.8 pg (27.0-31.0); Mean Corpuscular Volume 85.5 fL (78.0-98.0); Mean Platelet Volume 9.2 fL (7.4-10.4); Platelet Count 257 thou/uL (130-400); RBC Distribution Width 18.2 % (11.5-14.5); White Blood Cell (WBC) Count 9.9 thou/uL (4.8-10.8)
--- NOTE | 2018-05-19 21:55 | CT ---
CT BRAIN WITHOUT CONTRAST: History: Stroke. Left sided weakness. Comparison: MRI brain, 10-30-17 FINDINGS: Posterior left temporal hypodensity is similar to the MRI from 2018. No acute hemorrhage. Right media l occipital volume loss is similar. No acute hemorrhage or large volume infarction. No midline shift of mass effect. The calvarium is intact. Paranasal sinuses and mastoids are clear. There is mild mucosal thickening o f the anterior left and anterior right maxillary sinuses. IMPRESSION: Chronic findings. No acute infarction or hemorrhage. Code ARTEMIO Bond, 9:47 p.m. 05-19-18. POS: [facility]
[2018-05-19 22:01] LABS: INR-International Normal Ratio 1.2; PTT 31.8 SEC (22.9-36.1); Prothrombin Time 15.1 SEC (12.0-14.7)
[2018-05-19 22:05] LABS: ALT (SGPT) 20 U/L (8-55); AST (SGOT) 19 U/L (5-34); Albumin 4.3 g/dL (3.4-4.8); Alkaline Phosphatase 168 U/L (40-150); Anion Gap 16 mmol/L (10-20); BUN (Urea Nitrogen) 44 mg/dL (8.4-25.7); Bilirubin, Total 0.4 mg/dL (0.2-1.2); Calc. Creatinine Clearance 0 mL/min (70-130); Carbon Dioxide 18 mmol/L (23-31); Chloride 114 mmol/L (98-107); Estimated GFR-MDRD 20; Globulin 3.4 g/dL (2.4-3.5); Glucose 182 mg/dL (80-115); Potassium 4.6 mmol/L (3.5-5.1); Protein, Total 7.7 g/dL (5.8-8.1); Sodium 143 mmol/L (136-145)
[2018-05-20] MEDS ORDERED: Ondansetron PF 4 MG/2 ML Vial IVP PRN ×2 (01:09→01:11)
[2018-05-20] MEDS ORDERED: Ondansetron ODT 4 MG TAB SL PRN (01:09)
[2018-05-20] MEDS ORDERED: Bisacodyl 10 MG SUPP PR PRN (01:11)
[2018-05-20] MEDS ORDERED: Furosemide 20 MG/2 ML VIAL SLOW IVP SCH ×2 (01:11→12:15)
[2018-05-20] MEDS ORDERED: traMADol HCl 50 MG TAB PO PRN ×2 (01:11→08:05)
[2018-05-20] MEDS ORDERED: hydrALAZINE 20 MG/ML VIAL SLOW IVP PRN (01:11)
[2018-05-20] MEDS ORDERED: HumaLOG 300 UNITS/3 ML VIAL SC PRN (01:11)
[2018-05-20] MEDS ORDERED: Labetalol HCl 100 MG/20 ML VIAL SLOW IVP PRN (01:11)
[2018-05-20] MEDS ORDERED: Dextrose 50% Abboject 50 ML SYRINGE SLOW IVP PRN (01:11)
[2018-05-20] MEDS ORDERED: Dextrose 5% in Water 1,000 ML IV PRN (01:11)
--- NOTE | 2018-05-20 01:32 | HP ---
PRIMARY CARE PHYSICIAN: Mia Guzman MD. CHIEF COMPLAINT: Facial droop and lower extremity weakness. HISTORY OF PRESENT ILLNESS: The patient is a 67-year-old male with past medical history of gastric and duodenal ulcers, anemia, chronic kidney disease stage 4, diabetes, hypertension, chronic congestive heart failure, paroxysmal atrial fibrillation, and coronary artery disease, who presents to the emergency department with his and granddaughter with concern for facial droop on the left side, slurred speech, and dropping objects. Family came to the home around 7:00 p.m. and noticed these symptoms, but per the patient, he has been dropping his things throughout the day. The patient also reports some difficulty with walking as well. The patient was recently admitted for GI bleed. His Xarelto and his aspirin were stopped. The patient follows up with his pony worker, Dr. Ponce, who referred the patient to arrhythmia center for Watchman placement. The patient has not taken aspirin and Xarelto since his last admission. The patient denies any chest pain , shortness of breath, abdominal pain, nausea, vomiting, or diarrhea. 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 PAST MEDICAL HISTORY: Mentioned in the HPI. PAST SURGICAL HISTORY: Cardiac ablation, tonsillectomy, blood clot removal from the right arm, left knee surgery. SOCIAL HISTORY: The patient denies alcohol. He is smoking. Lives at home with family. FAMILY HISTORY: Unknown. CURRENT MEDICATIONS: Includes: 1. Lipitor. 2. Tramadol. 3. Carvedilol. 4. Furosemide. 5. Losartan. 6. Diltiazem. 7. Lantus. 8. Amlodipine. 9. Calcitriol. 10. Hydralazine. 11. Iron. 12. Zolpidem. 13. Pantoprazole. ALLERGIES: KNOWN ALLERGIES TO TYLENOL AND CINNAMON. REVIEW OF SYSTEMS: Ten-point review of system negative other than mentioned in the HPI. PHYSICAL EXAMINATION: VITAL SIGNS: Blood pressure 160/67, pulse 73, respiratory rate 18, temperature 98.5, and O2 saturation 97% on room air. GENERAL: The patient is alert and cooperative. HEENT: Head, atraumatic. Ear, nose, and throat; no exudate or bleeding noted. Face, the patient noted to have slight facial droop on the left side. NECK: No lymphadenopathy noted. CARDIOVASCULAR: No murmur, rubs, or gallops. Regular rate and rhythm. RESPIRATORY: Clear bilaterally. No wheezes. ABDOMEN: Soft, nontender. Bowel sounds are positive. EXTREMITIES: Lower extremity, 2+ edema noted. The patient has compression stockings on. SKIN: No rashes noted. NEUROLOGIC: Cranial nerve 2 through 12 grossly intact except facial droop noted on the left side, slurred speech, and decreased hearing on the left side. Upper extremity strength; right 5/5, left 4+/5. Lower extremity strength; right 5/5, left 4/5. Sensation intact bilaterally. LABORATORY DATA: White blood cell count 9.9, hemoglobin 10.5, hematocrit 35, platelets 257. PT 15.1, INR 1.2, PTT 31.8. Sodium 142, potassium 4.6, chloride 114, carbon dioxide 18, BUN 44, creatinine 3.19, glucose 182, alkaline phosphate 168. Troponin 0.018. IMAGING STUDIES: 1. CT head, reviewed and negative for acute hemorrhagic stroke. 2. EKG reviewed, difficult to interpret, but no ST-segment elevation noted. QT/ QTc 410/439. ASSESSMENT: 1. Suspected CVA. 2. Chronic kidney disease stage 4. 3. Elevated blood pressure. 4. Paroxysmal atrial fibrillation. 5. Chronic congestive heart failure. 6. Bilateral lower extremity edema. 7. Hypertension. 8. Diabetes 9. Hx of GIB and ulcers PLAN: 1. Patient per history seems to have acute CVA with the left-sided weakness and facial droop. CT head negative. Neurology consulted. Ultrasound Doppler carotid artery pending. We will order MRI of the brain. Fall precautions, PT, OT, Speech Therapy. We will have the patient on fall precaution. We will have the patient on tele. Echocardiogram ordered. We will give small dose of aspirin. Given recent history of GI bleed, we will have Cardiology consulted for further recommendation for anti-platelet therapy until watchman device could be placed. 2. Bilateral lower extremity edema, likely from chronic CHF. This can also be worsened because the patient has not been moving much at home. The patient takes Lasix at home. We will give one small dose of Lasix 20 mg IV. Cont home lasix 3. CKD stage 4. The patient's creatinine seemed to be close to his baseline. We will give small dose of Lasix. Consider Nephrology consult in the a.m. 4. Hypertension. The patient's blood pressure is elevated at 160/67. Given concern for CVA, we will allow for permissive hypertension. We will have hydralazine and labetalol p.r.n. for blood pressure greater than 220/120. 5. Diabetes. Continue insulin. 6. Hyperlipidemia. Continue statin. 7. The patient is full code. 8. Medical power of admitted attorneys, . 9. DVT prophylaxis, SCDs, given recent history of GI bleed. Job ID: [id number] MTDD
[2018-05-20 01:44] LABS: Troponin I 0.021 ng/mL (< 0.028)
[2018-05-20 02:35] VITALS: BMI 40.1
--- NOTE | 2018-05-20 05:50 | ULT ---
CAROTID DOPPLER ULTRASOUND: FINDINGS: There is elevated peak systolic velocity in the right common carotid artery, measuring 210 cm per sec ond. There is mildly increased peak systolic velocity with the left internal carotid artery, proxima lly, measuring 127 cm per second. The right ICA/CCA ratio is 0.49, and the left ICA/CCA ratio is 0.8 7. There is antegrade flow in both vertebral arteries. IMPRESSION: 1. There is 50% to 69% stenosis in the left internal carotid artery. 2. Elevated peak systolic velocity in the right common carotid artery, likely sequela of a focal are a of plaque. POS: [facility]
[2018-05-20 07:06] LABS: #Basophils 0.1 thou/uL (0.0-0.2); #Eosinphils 0.4 thou/uL (0.0-0.7); #Lymphocytes 1.3 thou/uL (1.20-3.40); #Monocytes 0.9 thou/uL (0.11-0.59); #Neutrophils 6.1 thou/uL (1.40-6.50); %Basophils 0.8 % (0.0-1.0); %Eosinophils 4.5 % (0.0-10.0); %Lymphocytes 14.7 % (21.0-51.0); %Monocytes 10.2 % (0.0-10.0); %Neutrophils 69.8 % (42.0-75.0); Hemoglobin 10.1 g/dL (14.0-18.0); Mean Corpuscular HGB CONC 30.9 g/dL (32.0-36.0); Mean Corpuscular Hemoglobin 26.4 pg (27.0-31.0); Mean Corpuscular Volume 85.3 fL (78.0-98.0); Mean Platelet Volume 8.4 fL (7.4-10.4); Platelet Count 213 thou/uL (130-400); Red Blood Cell (RBC) Count 3.82 mill/uL (4.70-6.10); White Blood Cell (WBC) Count 8.8 thou/uL (4.8-10.8)
[2018-05-20 07:29] LABS: Anion Gap 13 mmol/L (10-20); BUN (Urea Nitrogen) 41 mg/dL (8.4-25.7); Calc. Creatinine Clearance 45 mL/min (70-130); Calcium 9.7 mg/dL (7.8-10.44); Carbon Dioxide 20 mmol/L (23-31); Cardiac Risk 2.8 (Less than 4.5); Chloride 114 mmol/L (98-107); Cholesterol 124 mg/dl (< 200 Desired); Estimated GFR-MDRD 22; Glucose 113 mg/dL (80-115); HDL Cholesterol 44 mg/dL (>60 Neg Risk); LDL Cholesterol, Calculated 66 mg/dL; Potassium 4.1 mmol/L (3.5-5.1); Sodium 143 mmol/L (136-145); Triglycerides 71 mg/dL (Less than 150)
[2018-05-20 07:30] LABS: Troponin I 0.026 ng/mL (< 0.028)
[2018-05-20] MEDS: Aspirin 81 mg Enteric Coated Tablet PO SCH (08:05)
[2018-05-20] MEDS: Amlodipine 10 MG TAB PO SCH (08:30)
[2018-05-20] MEDS: Calcitriol 0.25 MCG CAP PO SCH (08:30)
[2018-05-20] MEDS: hydrALAZINE 25 MG TAB PO SCH ×2 (08:30→21:27)
[2018-05-20] MEDS: Furosemide 20 MG TAB PO SCH (08:31)
[2018-05-20] MEDS: Losartan 25 MG TAB PO SCH (08:31)
[2018-05-20] MEDS: Carvedilol 6.25 MG TAB PO SCH ×2 (08:31→21:27)
[2018-05-20] MEDS ORDERED: Lorazepam 2 MG/ML VIAL ONE (08:58)
[2018-05-20] MEDS ORDERED: INSULIN GLARGINE HUM REC ANLOG 30 UNIT SC SCH (09:00)
[2018-05-20] MEDS ORDERED: Aspirin Chewable 81 MG TAB PO SCH (09:00)
[2018-05-20] MEDS ORDERED: Lorazepam 2 MG/ML VIAL SLOW IVP SCH (09:30)
--- NOTE | 2018-05-20 10:00 | PDOC.PN ---
- Subjective Encounter Start Date: 05/20/18 Encounter Start Time: 07:00 Patient seen and examined. No new complaints. No overnight events pt feels himself baseline - Objective Resuscitation Status - Order Detail: 05/20/18 00:12 Resuscitation Status Routine Resuscitation Status: FULL: Full Resuscitation MAR Reviewed: Yes Vital Signs & Weight: Vital Signs (12 hours) Temp Pulse Resp BP Pulse Ox 05/20/18 08:31 62 05/20/18 08:30 62 05/20/18 07:41 98.4 F 62 16 170/94 H 95 05/20/18 06:05 99.1 F 69 18 140/67 93 L 05/20/18 01:05 98.1 F 77 20 170/79 H 96 Weight Weight 279 lb 5 oz I&O: 05/19/18 05/20/18 05/21/18 06:59 06:59 06:59 Output Total 1200 600 Balance -1200 -600 Result Diagrams: 05/20/18 06:54 05/20/18 06:53 Additional Labs: Accuchecks 05/20/18 05/19/18 06:06 21:41 POC Glucose 113 H 174 H Radiology Reviewed by me: Yes EKG Reviewed by me: Yes Phys Exam - Physical Examination Constitutional: NAD HEENT: PERRLA, moist MMs, sclera anicteric Neck: no JVD, supple Respiratory: no wheezing, no rales, no rhonchi Cardiovascular: no significant murmur, no rub Gastrointestinal: soft, non-tender, no distention, positive bowel sounds obesity+ Musculoskeletal: no edema, pulses present Neurological: moves all 4 limbs Lymphatic: no nodes Skin: no rash, normal turgor Dx/Plan (1) Stroke-like symptom Code(s): R29.90 - UNSPECIFIED SYMPTOMS AND SIGNS INVOLVING THE NERVOUS SYSTEM Status: Acute (2) Anemia of renal disease Code(s): N18.9 - CHRONIC KIDNEY DISEASE, UNSPECIFIED; D63.1 - ANEMIA IN CHRONIC KIDNEY DISEASE Status: Chronic (3) CKD (chronic kidney disease) stage 4, GFR 15-29 ml/min Code(s): N18.4 - CHRONIC KIDNEY DISEASE, STAGE 4 (SEVERE) Status: Chronic (4) Carotid stenosis, left Code(s): I65.22 - OCCLUSION AND STENOSIS OF LEFT CAROTID ARTERY Status: Chronic (5) Diabetes type 2, controlled Code(s): E11.9 - TYPE 2 DIABETES MELLITUS WITHOUT COMPLICATIONS Status: Chronic (6) Dyslipidemia Code(s): E78.5 - HYPERLIPIDEMIA, UNSPECIFIED Status: Chronic (7) H/O: GI bleed Code(s): Z87.19 - PERSONAL HISTORY OF OTHER DISEASES OF THE DIGESTIVE SYSTEM Status: Chronic (8) HTN (hypertension) Code(s): I10 - ESSENTIAL (PRIMARY) HYPERTENSION Status: Chronic Qualifiers: (9) Obesity (BMI 30-39.9) Code(s): E66.9 - OBESITY, UNSPECIFIED Status: Chronic (10) PAF (paroxysmal atrial fibrillation) Code(s): I48.0 - PAROXYSMAL ATRIAL FIBRILLATION Status: Chronic (11) Secondary hyperparathyroidism (of renal origin) Code(s): N25.81 - SECONDARY HYPERPARATHYROIDISM OF RENAL ORIGIN Status: Chronic - Plan cont current plan of care, PT/OT * medication reviewed as below * symptomatic treatment * today stroke work up * will give ativan for clostrophobia with MRI * neurology and cardiology consulted * will observe 24 hour and if stable, will consider discharge to home vs rehab if needed. Review of Systems - Review of Systems ENT: negative: Ear Pain, Ear Discharge, Nose Pain, Nose Discharge, Nose Congestion, Mouth Pain, Mouth Swelling, Throat Pain, Throat Swelling, Other Respiratory: negative: Cough, Dry, Shortness of Breath, Hemoptysis, SOB with Excertion, Pleuritic Pain, Sputum, Wheezing Cardiovascular: negative: chest pain, palpitations, orthopnea, paroxysmal nocturnal dyspnea, edema, light headedness, other Gastrointestinal: negative: Nausea, Vomiting, Abdominal Pain, Diarrhea, Constipation, Melena, Hematochezia, Other Genitourinary: negative: Dysuria, Frequency, Incontinence, Hematuria, Retention , Other Musculoskeletal: negative: Neck Pain, Shoulder Pain, Arm Pain, Back Pain, Hand Pain, Leg Pain, Foot Pain, Other Skin: negative: Rash, Lesions, Kyle, Bruising, Other - Medications/Allergies Allergies/Adverse Reactions: Allergies Allergy/AdvReac Type Severity Reaction Status Date / Time acetaminophen [From Tylenol] Allergy Rash Verified 05/20/18 01:58 cinnamon Allergy airway Verified 05/20/18 01:58 Medications: Current Medications Amlodipine Besylate (Norvasc) 10 mg PO DAILY [facility] Last Admin: 05/20/18 08:30 Dose: 10 mg Aspirin (Ecotrin) 81 mg PO DAILY [facility] Last Admin: 05/20/18 08:05 Dose: 81 mg Atorvastatin Calcium (Lipitor) 40 mg PO [facility] Bisacodyl (Dulcolax) 10 mg [place] DAILYPRN PRN PRN Reason: Constipation Calcitriol (Rocaltrol) 0.5 mcg PO DAILY [facility] Last Admin: 05/20/18 08:30 Dose: 0.5 mcg Carvedilol (Coreg) 6.25 mg PO BID [facility] Last Admin: 05/20/18 08:31 Dose: 6.25 mg Dextrose/Water (Dextrose 50%) 25 gm SLOW IVP PRN PRN PRN Reason: Hypoglycemia Diltiazem HCl (Cardizem Cd) 120 mg PO DAILY [facility] Last Admin: 05/20/18 08:31 Dose: 120 mg Furosemide (Lasix) 20 mg PO DAILY [facility] Last Admin: 05/20/18 08:31 Dose: 20 mg Glucagon (Glucagon) 1 mg IM PRN PRN PRN Reason: Hypoglycemia Hydralazine HCl (Apresoline) 10 mg SLOW IVP Q4H PRN PRN Reason: BP > 220/110 Hydralazine HCl (Apresoline) 100 mg PO BID [facility] Last Admin: 05/20/18 08:30 Dose: 100 mg Dextrose/Water (D5w) 1,000 mls @ 0 mls/hr IV .Q0M PRN PRN Reason: Hypoglycemia Insulin Glargine 24 units/ (Miscellaneous Medication) 0.24 mls @ 0 mls/hr SC DAILY [facility] Insulin Human Lispro (Humalog) 0 units SC .MILD SLIDING SCALE PRN PRN Reason: Mild Correctional Scale Labetalol HCl (Normodyne) 20 mg SLOW IVP Q1H PRN PRN Reason: BP > 220/110 Lorazepam (Ativan) 1 mg SLOW IVP 0930 [facility] Stop: 05/20/18 14:00 Last Admin: 05/20/18 09:05 Dose: 1 mg Losartan Potassium (Cozaar) 25 mg PO DAILY [facility] Last Admin: 05/20/18 08:31 Dose: 25 mg Ondansetron HCl (Zofran) 4 mg IVP Q6H PRN PRN Reason: Nausea/Vomiting Pantoprazole Sodium (Protonix) 40 mg PO BID [facility] Last Admin: 05/20/18 08:30 Dose: 40 mg Sodium Chloride (Flush - Normal Saline) 10 ml IVF Q12HR [facility] Last Admin: 05/20/18 08:05 Dose: 10 ml Sodium Chloride (Flush - Normal Saline) 10 ml IVF PRN PRN PRN Reason: Saline Flush Last Admin: 05/20/18 03:15 Dose: 10 ml Tramadol HCl (Ultram) 50 mg PO QID PRN PRN Reason: Pain Zolpidem Tartrate (Ambien) 5 mg PO HS PRN PRN Reason: Insomnia
[2018-05-20] MEDS: Insulin Glargine 24 UNITS in Pre-Filled Syringe 1 EACH SC SCH (10:09)
[2018-05-20 10:15] LABS: Bilirubin Negative (Negative); Blood, Urine Negative (Negative); Clarity CLOUDY (Clear); Glucose, Urine (Dipstick) Negative (Negative); Leukocyte Large (Negative); Nitrite Negative (Negative); Protein, Urine (Dipstick) 30 mg/dL (Neg-Trace); Urobilinogen 0.2 mg/dL (0.2-1.0)
[2018-05-20 10:18] LABS: Hyaline Casts/LPF 0-3 HYALINE CAST LPF (0-3 Hyaline); Squamous Epithelial None Seen HPF (0-3)
[2018-05-20 10:20] LABS: Yeast-AUWi Flag 101.6 (0-25.0)
[2018-05-20 10:30] LABS: Yeast-All Forms None Seen HPF (None Seen)
[2018-05-20 10:31] LABS: Bacteria/HPF 1+ HPF (None Seen)
--- NOTE | 2018-05-20 11:35 | MRI ---
MRI BRAIN: DATE: 05/20/2018. PROVIDED CLINICAL HISTORY: Slurred speech. FINDINGS: Comparison is made to brain CT 05/19/2018. Evaluation is limited by patient motion. The ventricular system appears normal in size and morphology. There is no evidence for intracranial hemorrhage or mass effect. There is restricted diffusion present involving the right insular and sub insular region extending into the right frontal white matter compatible with recent infarction. No a dditional restricted diffusion is evident. Appropriate flow voids are seen within the major intracranial vessels. The extracranial soft tissues and calvarial marrow signal appear without significant abnormality. Mild chronic microvascular isch emic changes involve the cerebral white matter. IMPRESSION: Findings compatible with recent infarction in the distribution of the right middle cerebral artery. POS: [facility]
[2018-05-20] MEDS: cefTRIAXone\\ROCEPHIN 1 GM in Sodium Chloride 0.9% 100 ML IVPB SCH (12:35)
--- NOTE | 2018-05-20 16:00 | CON ---
DATE OF CONSULTATION: 05/20/2018 PRIMARY CARE DOCTOR: Dr. Guzman. PRIMARY EXECUTIVE VICE PRESIDENT AND CHIEF FINANCIAL OFFICER: Dr. Opal Ponce. REASON FOR CARDIOLOGY CONSULT: Anticoagulant recommendation. HISTORY OF PRESENT ILLNESS: Mr. Silva is a 67-year-old male with significant history of congestive heart failure, chronic kidney disease stage 4, hypertension, hyperlipidemia, and diabetes. The patient was in the hospital in 04/13 for GI bleeding secondary to Xarelto and aspirin, which were stopped. The patient was recommended to hold Xarelto and aspirin for 3 months until he follows up with his GI doctor. Last Sunday, the patient's granddaughter noticed the patient's speech is more slurred and the patient has left facial droop. The patient was transferred to emergency department and find out the patient has TIA. The patient has a brain MRI today, which shows a history of recent infarction in the distribution of the right middle cerebral arteries. At this moment, the patient is still having slurry speech and left facial droop. However, the patient is able to move all extremities and he can swallow well. Echocardiogram was done with EF of 55% to 60%, mild global left ventricular hypertrophy, left atrial enlargement, mild mitral valve regurgitation, mild tricuspid insufficiency, and elevation of pulmonary artery pressure, and some calcium seen in the ascending aorta. The patient had another echocardiogram done today and the patient has ablation done in 2013 and cardioversion x2 by Dr. Kent. He has not had any stress test or cardiac catheterization. MEDICAL HISTORY: 1. Atrial fibrillation. 2. Hypertension. 3. Chronic kidney disease, stage 4, which is managed by Dr. García. 4. Hyperlipidemia. 5. Diabetes, type 2. 6. Right upper extremity bronchial artery occlusion. The patient is on Xarelto. SURGICAL HISTORY: 1. Cardiac ablation. 2. Tonsillectomy. 3. Left knee surgery. FAMILY HISTORY: Unknown due to he is being adopt. 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 He is living with his . He is ex-smoker, quit more than 10 years ago. He is occasional drinker 4 times a month. He drinks coffee 4 cups a day. ALLERGIES: HE IS ALLERGIC TO ACETAMINOPHEN AND CINNAMON. HOME MEDICATIONS: 1. Calcitriol 0.5 mcg one tablet once a day. 2. Cozaar 25 mg once a day. 3. Iron 65 mg twice a day. 4. Tramadol 50 mg one to two tablets p.o. 4 times a day as needed. 5. Atorvastatin 40 mg once a day. 6. Hydralazine 100 mg twice a day. 7. Diltiazem 120 mg once a day. 8. Furosemide 20 mg once a day. 9. Ambien 5 mg at night as needed. 10. Cetirizine 10 mg once a day. 11. Amlodipine 10 mg once a day. 12. Carvedilol 6.25 mg once a day. 13. Insulin 30 units subcutaneous daily. 14. Protonix 40 mg twice a day next. REVIEW OF SYSTEMS: A 12-point review of systems is negative unless otherwise mentioned in the HPI. Prior to this admission, the patient denied any cardiac complaints. PHYSICAL EXAMINATION: VITAL SIGNS: Blood pressure 154/70, temperature 98.0, pulse is 66 and AFib, respiratory rate 16, and O2 saturation 94% with room air. GENERAL: The patient is alert and oriented x4, not in acute distress. HEAD: Normocephalic and atraumatic. EYES: Extraocular muscle movement intact. ENT AND MOUTH: Oral and nasal mucosa moist without lesion. During the speech eval, the patient able to swallow without cough or any abnormalities. The patient still has left facial droop at this moment with slurry speech. NECK: Normal range of motion. No JVD. RESPIRATORY: Clear to auscultate bilaterally with expiratory wheezing and diminished at the bases. CARDIOVASCULAR: Irregularly irregular. No S3, S4. No significant murmur, hives, or thrill noted, 2+ pulses in bilateral upper and lower extremities, 2+ pitting edema in the lower extremities. ABDOMEN: Soft and nontender. No masses palpated. Bowel sounds are present. MUSCULOSKELETAL: The patient is able to move all extremities without difficulty. The patient denied claudication. SKIN: Warm and dry. No lesion, rash, discoloration, or erythema noted. NEUROLOGIC: The patient is alert and oriented x4. The patient able to follow commands and answer appropriately. PSYCHIATRIC: The patient's mood is appropriate. DIAGNOSTIC STUDIES: Carotid doppler study shows 50% to 69% stenosis in the left internal carotid artery. LABORATORY DATA: WBC 8.8, hemoglobin 10.1, hematocrit 32.6, and platelets 213. Sodium 143, potassium 4.1, BUN 41, and creatinine 2.91. Cholesterol 124, triglycerides 71, HDL 44, and LDL 56. Troponin level is negative. The patient had echocardiogram done and the result is pending at this moment. ASSESSMENT AND PLAN: 1. The patient had a possible TIA. The patient's CT scan and MRI show no acute hemorrhage, showing the chronic infarction in the distribution of the right middle cerebral artery, but no evidence for acute intracranial hemorrhage of mass effect. The aspirin was resumed for this patient. We would like to continue to monitor the patient's hemoglobin level and we would like to resume oral anticoagulant or Plavix. 2. Chronic atrial fibrillation. The patient is on the telemetry, which shows chronic atrial fibrillation with well-controlled heart rate. The patient is on aspirin at this moment. Due to the history of recent gastrointestinal bleed, we would like to continue to monitor patient's hemoglobin level and we would like to resume anticoagulant or platelet for this patient. 3. Hypertension. The patient's blood pressure is stable at this moment. We would like to continue to monitor. 4. Hyperlipidemia. The patient is on Lipitor 40 mg once a day. 5. Diabetes, type 2. We would like to defer to the primary care doctor. 6. Acute on chronic kidney disease, stage 4. The patient's renal function is stable at this moment. 7. Possible acute diastolic dysfunction. The patient has continued having expiratory wheezing with mild edema in the lower extremities. After the patient received the Lasix 20 mg IV push yesterday, he still continued to complain of the bloated abdomen. We would like to go ahead to order another Lasix 20 mg IV push today and see how he responds to the medication. We would like to continue to monitor the patient. The echocardiogram was taken today and the result is pending at this moment. Thank you for allowing the Cardiology Service to participate in the care of this patient. We will follow along the patient's care team and make further recommendations as appropriate. Job ID: [id number]
[2018-05-20] MEDS: Atorvastatin Calcium 40 MG TAB PO SCH (21:27)
[2018-05-20] MEDS: Zolpidem Tartrate 5 MG TAB PO PRN (21:30)
--- NOTE | 2018-05-21 08:39 | CON ---
DATE OF CONSULTATION: 05/20/2018 ADDENDUM: Please refer to the notes dictated by my nurse practitioner. I have reviewed these records. We have discussed the patient together and I would agree with the assessment and plan and also with history of present illness, past medical history, social history, family history, surgical history, allergies, medications, review of systems. In brief, Mr. Silva is a very pleasant 67-year-old gentleman with a history of atrial fibrillation, who has undergone ablations in the past. He has been on oral anticoagulations, but then developed GI bleed. His medications were then discontinued and unfortunately, he has now presented again with CVA, most likely which is embolic in nature due to his atrial fibrillation. We will need to discuss with the Curriculum Assistant Principal as to the earliest point that we can resume his oral anticoagulation. He will need most likely in the future to undergo a Watchman device placement as long as he is able to tolerate blood thinners or oral anticoagulation at least for a few months after the device has been placed. At this time, he remains relatively stable. He still has some facial drooping on the left side as noted and some weakness just in the left upper extremity, but however, this is improving. Speech is also less slurred at this time. We will defer resuming of oral anticoagulation after discussion with recruit instructor. His other medical problems will be dealt with by the other on line csr, as well as primary care physicians. In my perspective, I believe it would be best for this patient to be on some type of oral anticoagulation. We will also re-discuss this case with Dr. Kent, who performed his cardioversions and ablations in the past. Job ID: [id number]
[2018-05-21] MEDS: Losartan 25 MG TAB PO SCH (09:05)
[2018-05-21] MEDS: Aspirin 81 mg Enteric Coated Tablet PO SCH (09:05)
[2018-05-21] MEDS: hydrALAZINE 25 MG TAB PO SCH ×2 (09:05→22:44)
[2018-05-21] MEDS: Calcitriol 0.25 MCG CAP PO SCH (09:06)
[2018-05-21] MEDS: Carvedilol 6.25 MG TAB PO SCH ×2 (09:06→22:45)
[2018-05-21] MEDS: Furosemide 20 MG TAB PO SCH (09:06)
[2018-05-21] MEDS: Amlodipine 10 MG TAB PO SCH (09:06)
[2018-05-21] MEDS: Insulin Glargine 24 UNITS in Pre-Filled Syringe 1 EACH SC SCH (09:07)
--- NOTE | 2018-05-21 11:41 | PDOC.PN ---
- Subjective Encounter Start Date: 05/21/18 Encounter Start Time: 07:10 -: old records requested/rev Patient seen and examined. No new complaints. No overnight events - Objective Resuscitation Status - Order Detail: 05/20/18 00:12 Resuscitation Status Routine Resuscitation Status: FULL: Full Resuscitation MAR Reviewed: Yes Vital Signs & Weight: Vital Signs (12 hours) Temp Pulse Resp BP Pulse Ox 05/21/18 11:38 99.6 F 67 20 138/65 92 L 05/21/18 09:06 62 05/21/18 09:05 62 05/21/18 08:00 99.5 F 62 20 154/71 H 92 L 05/21/18 04:00 97.9 F 65 19 148/70 H 94 L 05/21/18 00:00 99.3 F 66 20 147/66 H 93 L Weight Weight 280 lb 1.6 oz I&O: 05/20/18 05/21/18 05/22/18 06:59 06:59 06:59 Intake Total 840 Output Total 1200 2125 Balance -1200 -1285 Result Diagrams: 05/20/18 06:54 05/20/18 06:53 Additional Labs: Accuchecks 05/21/18 05/21/18 05/20/18 10:52 06:32 20:02 POC Glucose 232 H 91 128 H 05/20/18 05/20/18 16:52 10:50 POC Glucose 102 131 H Radiology Reviewed by me: Yes (MRI reviewed) EKG Reviewed by me: Yes (afib) Phys Exam - Physical Examination Constitutional: NAD HEENT: PERRLA, moist MMs, sclera anicteric Neck: no JVD, supple Respiratory: no wheezing, no rales, no rhonchi Cardiovascular: no significant murmur, irregular Gastrointestinal: soft, non-tender, no distention, positive bowel sounds obesity+ Musculoskeletal: no edema, pulses present Neurological: non-focal, normal sensation, moves all 4 limbs Lymphatic: no nodes Psychiatric: normal affect, A&O x 3 Skin: no rash, normal turgor Dx/Plan (1) Acute right MCA stroke Code(s): I63.511 - CEREB INFRC D/T UNSP OCCLS OR STENOS OF RIGHT MID CEREB ART Status: Acute (2) Anemia of renal disease Code(s): N18.9 - CHRONIC KIDNEY DISEASE, UNSPECIFIED; D63.1 - ANEMIA IN CHRONIC KIDNEY DISEASE Status: Chronic (3) CKD (chronic kidney disease) stage 4, GFR 15-29 ml/min Code(s): N18.4 - CHRONIC KIDNEY DISEASE, STAGE 4 (SEVERE) Status: Chronic (4) Carotid stenosis, left Code(s): I65.22 - OCCLUSION AND STENOSIS OF LEFT CAROTID ARTERY Status: Chronic (5) Diabetes type 2, controlled Code(s): E11.9 - TYPE 2 DIABETES MELLITUS WITHOUT COMPLICATIONS Status: Chronic (6) Dyslipidemia Code(s): E78.5 - HYPERLIPIDEMIA, UNSPECIFIED Status: Chronic (7) H/O: GI bleed Code(s): Z87.19 - PERSONAL HISTORY OF OTHER DISEASES OF THE DIGESTIVE SYSTEM Status: Chronic (8) HTN (hypertension) Code(s): I10 - ESSENTIAL (PRIMARY) HYPERTENSION Status: Chronic Qualifiers: (9) Obesity (BMI 30-39.9) Code(s): E66.9 - OBESITY, UNSPECIFIED Status: Chronic (10) PAF (paroxysmal atrial fibrillation) Code(s): I48.0 - PAROXYSMAL ATRIAL FIBRILLATION Status: Chronic (11) Secondary hyperparathyroidism (of renal origin) Code(s): N25.81 - SECONDARY HYPERPARATHYROIDISM OF RENAL ORIGIN Status: Chronic - Plan cont current plan of care, plan discussed w/ family, PT/OT * discussed with pt and about risk and benefit of chronic anticoagulation * today will consult GI to give opinion regarding chronic anticoagulation in view of recent GI bleed * medication reviewed as below * symptomatic treatment * stroke team evaluation. Review of Systems - Review of Systems ENT: negative: Ear Pain, Ear Discharge, Nose Pain, Nose Discharge, Nose Congestion, Mouth Pain, Mouth Swelling, Throat Pain, Throat Swelling, Other Respiratory: negative: Cough, Dry, Shortness of Breath, Hemoptysis, SOB with Excertion, Pleuritic Pain, Sputum, Wheezing Cardiovascular: negative: chest pain, palpitations, orthopnea, paroxysmal nocturnal dyspnea, edema, light headedness, other Gastrointestinal: negative: Nausea, Vomiting, Abdominal Pain, Diarrhea, Constipation, Melena, Hematochezia, Other Genitourinary: negative: Dysuria, Frequency, Incontinence, Hematuria, Retention , Other Musculoskeletal: negative: Neck Pain, Shoulder Pain, Arm Pain, Back Pain, Hand Pain, Leg Pain, Foot Pain, Other - Medications/Allergies Allergies/Adverse Reactions: Allergies Allergy/AdvReac Type Severity Reaction Status Date / Time acetaminophen [From Tylenol] Allergy Rash Verified 05/20/18 01:58 cinnamon Allergy airway Verified 05/20/18 01:58 Medications: Current Medications Amlodipine Besylate (Norvasc) 10 mg PO DAILY [facility] Last Admin: 05/21/18 09:06 Dose: 10 mg Aspirin (Ecotrin) 81 mg PO DAILY [facility] Last Admin: 05/21/18 09:05 Dose: 81 mg Atorvastatin Calcium (Lipitor) 40 mg PO HS [facility] Last Admin: 05/20/18 21:27 Dose: 40 mg Bisacodyl (Dulcolax) 10 mg MT DAILYPRN PRN PRN Reason: Constipation Calcitriol (Rocaltrol) 0.5 mcg PO DAILY [facility] Last Admin: 05/21/18 09:06 Dose: 0.5 mcg Carvedilol (Coreg) 6.25 mg PO BID [facility] Last Admin: 05/21/18 09:06 Dose: 6.25 mg Dextrose/Water (Dextrose 50%) 25 gm SLOW IVP PRN PRN PRN Reason: Hypoglycemia Diltiazem HCl (Cardizem Cd) 120 mg PO DAILY [facility] Last Admin: 05/21/18 09:06 Dose: 120 mg Furosemide (Lasix) 20 mg PO DAILY [facility] Last Admin: 05/21/18 09:06 Dose: 20 mg Glucagon (Glucagon) 1 mg IM PRN PRN PRN Reason: Hypoglycemia Hydralazine HCl (Apresoline) 10 mg SLOW IVP Q4H PRN PRN Reason: BP > 220/110 Hydralazine HCl (Apresoline) 100 mg PO BID [facility] Last Admin: 05/21/18 09:05 Dose: 100 mg Dextrose/Water (D5w) 1,000 mls @ 0 mls/hr IV .Q0M PRN PRN Reason: Hypoglycemia Insulin Glargine 24 units/ (Miscellaneous Medication) 0.24 mls @ 0 mls/hr SC DAILY [facility] Last Admin: 05/21/18 09:07 Dose: 0.24 mls Ceftriaxone Sodium 1 gm/ (Sodium Chloride) 100 mls @ 200 mls/hr IVPB 1200 [facility] Last Admin: 05/20/18 12:35 Dose: 100 mls Insulin Human Lispro (Humalog) 0 units SC .MILD SLIDING SCALE PRN PRN Reason: Mild Correctional Scale Labetalol HCl (Normodyne) 20 mg SLOW IVP Q1H PRN PRN Reason: BP > 220/110 Losartan Potassium (Cozaar) 25 mg PO DAILY [facility] Last Admin: 05/21/18 09:05 Dose: 25 mg Ondansetron HCl (Zofran) 4 mg IVP Q6H PRN PRN Reason: Nausea/Vomiting Pantoprazole Sodium (Protonix) 40 mg PO BID [facility] Last Admin: 05/21/18 09:07 Dose: 40 mg Sodium Chloride (Flush - Normal Saline) 10 ml IVF Q12HR [facility] Last Admin: 05/21/18 09:08 Dose: 10 ml Sodium Chloride (Flush - Normal Saline) 10 ml IVF PRN PRN PRN Reason: Saline Flush Last Admin: 05/20/18 03:15 Dose: 10 ml Tramadol HCl (Ultram) 50 mg PO QID PRN PRN Reason: Pain Zolpidem Tartrate (Ambien) 5 mg PO HS PRN PRN Reason: Insomnia Last Admin: 05/20/18 21:30 Dose: 5 mg
[2018-05-21] MEDS: cefTRIAXone\\ROCEPHIN 1 GM in Sodium Chloride 0.9% 100 ML IVPB SCH (11:56)
--- NOTE | 2018-05-21 13:18 | PDOC.CTH ---
Cardiology Progress Note - Subjective The pt seen and examined. No overnight events. No cardiac complaints. He has walked to get a cup of coffee by himself this AM without dizziness. - Objective Vital Signs Temp Pulse Resp BP Pulse Ox 05/21/18 11:38 99.6 F 67 20 138/65 92 L 05/21/18 09:06 62 05/21/18 09:05 62 05/21/18 08:00 99.5 F 62 20 154/71 H 92 L 05/21/18 04:00 97.9 F 65 19 148/70 H 94 L Weight 280 lb 1.6 oz 05/20/18 05/21/18 05/22/18 06:59 06:59 06:59 Intake Total 840 240 Output Total 1200 2125 Balance -1200 -1285 240 - Physical Examination General/Neuro: alert & oriented x3 Neck: no JVD present Lungs: CTA Heart: other: (irregular) Abdomen: soft Extremities: other: (no edema) - Telemetry Telemetry Rhythm: Afib 60s - Labs Result Diagrams: 05/20/18 06:54 05/20/18 06:53 Troponin/CKMB Troponin I 0.026 ng/mL (< 0.028) 05/20/18 06:54 - Assessment/Plan 1. Acute Rt MCA stroke - managed by neurologist; on ASA 81mg qd; waiting for GI input for further OAC management. 2. Afib - well controlled HR; On ASA 81mg qd for now 2/2 hx of GI bleed with Xarelto. If ok by GI, may start OAC with Eliquis or Pradaxa 3. HTN - stable 4. CKD stage 4 - 5. DM type 2 - 6. Chronic diastolic HF - 7. Hyperlipidemia - 8. mod Pulm. HTN with RVSP 66.1mmHg - stable with RA and Lasix; cont. to monitor MAR reviewed * Echo on 05/20/2018 showed EF 60-65%, prob. dd, mold pulm HTN (RVSP 66.1mmHg), mod dilated LA, mild ERA, mild MR, TR, and MI. Pt. seen and eval. by me. I agree with the A/P by the OVEN LOADER. I am waiting to speak with the Attending Anesthesiologist concerning his endoscopy 1 month ago. He had mutiple small ulcers in the antrum and an AV malformation. His H/H has improved but he is still anemic. With this new CVA he will need to be anticoagulated to decrease the risk of further CVA's. If he can tolerate OAC without further bleeding then he would likely need a Watchman device to decrease the risk of further embolization, CVA's. Discussed with GI, agree to start Eliquis 5mg bid. Continue H2 blockers. Plan for stress test to r/o ischemia. He has intermittent Afib. I will ask EP to visit with him about options with the intermittent Afib. Consider amiodarone or possible Multaq. His renal insufficiency will restrict the use of several anti-arhythmics. Chest clear. RRR at present. Review of Systems - Review of Systems Constitutional: reports: no symptoms reported EENTM: reports: no symptoms reported Respiratory: reports: no symptoms reported Cardiac (ROS): reports: no symptoms reported ABD/GI: reports: no symptoms reported : reports: no symptoms reported Musculoskeletal: reports: no symptoms reported Skin: reports: no symptoms reported
--- NOTE | 2018-05-21 19:09 | CON ---
DATE OF CONSULTATION: 05/21/2018 HISTORY OF PRESENT ILLNESS: I am seeing Mr. Silva at our [facility] as electrophysiology consultant electronics. His problems are; 1. Subacute CVA with left facial droop and right middle cerebral artery clot per MRI 05/20/2018. 2. History of recurrent atrial arrhythmias. a. History of radiofrequency ablation in April and September of 2012 including isolation of the left atrial appendage. b. 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 c. Eliquis being restarted. 3. Risk factors including hypertension and diabetes. 4. History of CHF with preserved LVEF at 60% to 65%, moderate left atrial enlargement, mild mitral regurgitation and tricuspid regurgitation, mild pulmonic regurgitation per echo 05/20/2018. ALLERGIES: TYLENOL AND CINNAMON. MEDICATIONS: At home included; 1. Calcitriol. 2. Losartan. 3. Iron supplements. 4. Tramadol. 5. Atorvastatin. 6. Hydralazine. 7. Diltiazem. 8. Furosemide. 9. Zolpidem. 10. Cetirizine. 11. Amlodipine. 12. Carvedilol. 13. Insulin. 14. Pantoprazole. SUBJECTIVE: Mr. Silva is here with new onset of the facial droop and slurring speech. He underwent an MRI, which indicated right MCA territory ischemic stroke. He was clinically stabilized and his symptoms mildly improved. He is not complaining of any new stroke-like symptoms apart from the presentation. No PND or orthopnea. No chest pain. He has some chronic lower extremity edema, which improved with ongoing diuretics. He denies fever, chills, or cough. No new bleeding issues and rest of 12-point system otherwise unremarkable. PAST MEDICAL HISTORY: As above. SOCIAL HISTORY: The patient denies EtOH or drug abuse. He does smoke. Lives at home with family. PAST SURGICAL HISTORY: Significant for the ablation as above, tonsillectomy, blood clot removal from the right arm, left knee surgery. FAMILY HISTORY: Not contributory. OBJECTIVE DATA: VITAL SIGNS: Blood pressure is 146/67, heart rate 66, respiratory rate 20, temperature 98.3 degrees Fahrenheit. PHYSICAL EXAMINATION: GENERAL: Alert and oriented man, in no apparent distress. NECK: Supple. Jugular veins not distended. CHEST: Coarse without crackles. HEART: Sounds are regular to rate and rhythm. No murmur or gallop. ABDOMEN: Benign. Bowel sounds positive. EXTREMITIES: Lower extremities without edema, clubbing, or cyanosis. Pulses are adequate. NEUROLOGIC: The patient is nonfocal. MUSCULOSKELETAL: Without joint swelling or deformity. SKIN: Without rash. DATABASE: EKG is reviewed revealing sinus rhythm, rate of 69 beats per minute. Nonspecific ST-T changes. QTc 440 milliseconds. Rare PACs are seen on telemetry. No atrial fibrillation is noted. LABORATORY DATA: White count is 8.3, hemoglobin 10.1, platelet count is 213. INR 1.2 on . Sodium 143, potassium 4.5, BUN is 41, creatinine is 2.9 on 05/20/2018. The troponin I 0.026. ASSESSMENT AND PLAN: Mr. Silva is a 67-year-old gentleman with a history of persistent atrial arrhythmias, who has underwent a repeated left atrial ablation procedure including isolation of the appendage in the past. He has been chronically anticoagulated, but recently the Xarelto was stopped due to GI bleed requiring transfusions. He has unfortunately suffered a right MCA territory ischemic stroke. The significant risk for recurrent ischemic stroke in view of the history of left atrial appendage isolation and recent ischemic stroke. His CHADS-VASc score is high at 5 in view of the nonocclusive left internal carotid artery stenosis proving vascular disease, also hypertension, recent stroke, and age. He would likely benefit from resuming anticoagulation. Although, we discussed the concern for potential hemorrhagic conversion. Eventually after recovery from the stroke, he likely would benefit from consideration of Watchman device, especially if no further bleeding issues occurred hence, he would ideally need at least 6 weeks of oral anticoagulation post Watchman. If the current Eliquis dose 5 mg twice a day is not tolerated, it may be suffice to get by with twice a day 2.5 mg daily dosages of Eliquis as well. This concern, risks, and benefits are discussed with the patient. We will defer to Dr. Ponce. Thank you for allowing me to participate in the care of this patient. Job ID: [id number]
[2018-05-21] MEDS ORDERED: Apixaban 5 MG TAB PO SCH (21:00)
[2018-05-21] MEDS: Apixaban 5 MG TAB PO SCH (22:44)
[2018-05-21] MEDS: Zolpidem Tartrate 5 MG TAB PO PRN (22:45)
[2018-05-21] MEDS: Atorvastatin Calcium 20 MG TAB PO SCH (23:01)
[2018-05-21] MEDS: Atorvastatin Calcium 40 MG TAB PO SCH (23:01)
--- NOTE | 2018-05-21 23:13 | CON ---
DATE OF CONSULTATION: 05/21/2018 CONSULTING PHYSICIAN: Hospitalist Service. IMPRESSION: 1. Right middle cerebral artery stroke, likely cardioembolic in origin. 2. Renal insufficiency. 3. Diabetes. 4. Hyperlipidemia. 5. Atrial fibrillation off aspirin and his anticoagulant due to a recent gastrointestinal bleed. PLAN: 1. GI has determined that we can restart Eliquis. 2. I will go ahead and restart aspirin 81 mg per day. The patient will be discharged home to his discretion. HISTORY OF PRESENT ILLNESS: Mr. Silva presented with dysarthria and left facial droop. Initial CT scan showed an old area of damage in the left posterior temporal area. He reports that this was due to a head injury when he was younger. He has never had any stroke symptoms prior to this admission. Subsequent MRI of the brain showed some patchy injury in the right MCA territory, mostly anterior. There is no secondary hemorrhage. His carotid ultrasound showed some left carotid stenosis in the 50% to 69%. range. His cholesterol ratio was 2.8. His board machine set up operator was consulted and given that his duodenal ulcer was a month ago, they felt that he could restart anticoagulation. PAST MEDICAL HISTORY: As listed above. ALLERGIES: PER CHART. SOCIAL HISTORY: No tobacco use. FAMILY HISTORY: Noncontributory. MEDICATIONS: Medication list was reviewed. REVIEW OF SYSTEMS: A 10-system review of systems was otherwise unremarkable. PHYSICAL EXAMINATION: GENERAL: He is a somewhat overweight middle-aged man, in no acute distress. VITAL SIGNS: Have been stable. He is afebrile. HEENT: Pupils are equal and reactive. Conjunctivae are clear. Oropharynx is clear. Cranium, normocephalic and atraumatic. NECK: Supple, no lymphadenopathy. EXTREMITIES: No cyanosis or edema. NEUROLOGIC: He was alert and cooperative. His speech was fluent and clear. Cranial nerve exam showed flattening of left nasolabial fold. Motor exam showed good strength bilaterally without fix or drift. Sensation was intact to touch bilaterally. His balance and coordination were in normal limits. No abnormal movements were seen. IMAGING: Reviewed. SUMMARY: This is a gentleman who presented with stroke in the right MCA territory with resolving deficits. I agree with restarting his medication and he appears stable for discharge. Job ID: [id number]
[2018-05-22] MEDS: Atorvastatin Calcium 20 MG TAB PO SCH (00:01)
--- NOTE | 2018-05-22 08:42 | PDOC.CTH ---
Cardiology Progress Note - Subjective The pt seen and examined. No overnight events. No cardiac complaints. - Objective Vital Signs Temp Pulse Resp BP BP Pulse Ox 05/22/18 07:38 97.5 F L 58 L 20 136/72 95 05/22/18 04:00 98.1 F 62 19 129/64 95 05/22/18 00:00 98.0 F 71 18 134/65 92 L 05/21/18 22:45 148/71 H 05/21/18 22:44 68 148/71 H Weight 280 lb 1.6 oz 05/21/18 05/22/18 05/23/18 06:59 06:59 06:59 Intake Total 840 1200 Output Total 2125 Balance -1285 1200 - Physical Examination General/Neuro: alert & oriented x3 Neck: no JVD present Lungs: CTA Heart: RRR Abdomen: soft Extremities: other: (No edema) - Telemetry Telemetry Rhythm: SR - Labs Result Diagrams: 05/20/18 06:54 05/20/18 06:53 Troponin/CKMB Troponin I 0.026 ng/mL (< 0.028) 05/20/18 06:54 - Assessment/Plan 1. Acute Rt MCA stroke - managed by neurologist; Eliquis was started last night ; No s/s of GI bleed per the pt (If the pt cannot tolerate Eliquis 5mg, then will change to 2.5mg BID as Dr Escobedo's recommendation) 2. Afib - converted back to SR today; On Eliquis 5mg BID without any s/s of GI bleed; 3. HTN - stable 4. CKD stage 4 - 5. DM type 2 - 6. Chronic diastolic HF - stable 7. Hyperlipidemia - 8. Mod Pulm. HTN with RVSP 66.1mmHg - stable with RA and Lasix; cont. to monitor MAR reviewed * Echo on 05/20/2018 showed EF 60-65%, prob. dd, mold pulm HTN (RVSP 66.1mmHg), mod dilated LA, mild ERA, mild MR, TR, and SC. * From Cardiac standpoint, the pt is stable to d/c home with Eliquis. The pt will F/u with Dr Ponce' office within 2 wks. The pt also will f/u with Dr Escobedo' s office next wk? 30 day Eliquis coupon and Pt respiratory therapist assistant program form given to the pt today. Pt. seen and eval. by me. I agree with the A/P by the NURSERY SCHOOL TEACHER. I have discussed the pt. with EP and they agree that the Watchman should be placed ASHER. Chest clear. RRR. Review of Systems - Review of Systems Constitutional: reports: no symptoms reported EENTM: reports: no symptoms reported Respiratory: reports: no symptoms reported Cardiac (ROS): reports: no symptoms reported ABD/GI: reports: no symptoms reported : reports: no symptoms reported Musculoskeletal: reports: no symptoms reported
[2018-05-22] MEDS: Insulin Glargine 24 UNITS in Pre-Filled Syringe 1 EACH SC SCH (09:43)
[2018-05-22] MEDS: Losartan 25 MG TAB PO SCH (09:44)
[2018-05-22] MEDS: Apixaban 5 MG TAB PO SCH (09:44)
[2018-05-22] MEDS: Carvedilol 6.25 MG TAB PO SCH (09:44)
[2018-05-22] MEDS: hydrALAZINE 25 MG TAB PO SCH (09:45)
[2018-05-22] MEDS: Furosemide 20 MG TAB PO SCH (09:45)
[2018-05-22] MEDS: Calcitriol 0.25 MCG CAP PO SCH (09:45)
[2018-05-22] MEDS: Amlodipine 10 MG TAB PO SCH (09:45)
--- NOTE | 2018-05-22 11:21 | PDOC.CTH ---
Cardiology Progress Note - Subjective EP PROGRESS NOTE: 05/22/18 Patient seen and evaluated. No new cardiac concerns or complaints today. No bleeding issues seen since starting Eliquis. Denies heart racing, palpitations, chest pain/pressure, dizziness, or passing out. No stroke like symptoms. - Objective Vital Signs Temp Pulse Resp BP Pulse Ox 05/22/18 09:46 58 L 05/22/18 09:45 58 L 05/22/18 08:00 95 05/22/18 07:38 97.5 F L 58 L 20 136/72 95 05/22/18 04:00 98.1 F 62 19 129/64 95 05/22/18 00:00 98.0 F 71 18 134/65 92 L Weight 280 lb 1.6 oz 05/21/18 05/22/18 05/23/18 06:59 06:59 06:59 Intake Total 840 1200 480 Output Total 2125 Balance -1285 1200 480 - Physical Examination General/Neuro: alert & oriented x3, NAD Neck: carotid US brisk, no JVD present Lungs: CTA, unlabored respirations Heart: PMI normal, RRR Abdomen: NT/ND, soft - Telemetry Telemetry Rhythm: SR - Labs Result Diagrams: 05/20/18 06:54 05/20/18 06:53 Troponin/CKMB Troponin I 0.026 ng/mL (< 0.028) 05/20/18 06:54 - Assessment/Plan 1. Subacute CVA 2. History of atrial arrhythmias - had left atrial appendage isolated in the past, altering mechanical function even in sinus rhythm 3. GIB on xarelto, required blood transfusion - OAC was stopped 4. HTN 5. CHADS2-VASC:5 Continue Eliquis 5mg BID for now, if minor bleeding seen, reduce dose to 2.5mg BID. Currently in NSR. I have begun making arrangements for him to have a watchman implanted soon. No further EP issues at this time.
[2018-05-22 11:36] VITALS: BP 143/65; TEMP 98
[2018-05-22] MEDS: cefTRIAXone\\ROCEPHIN 1 GM in Sodium Chloride 0.9% 100 ML IVPB SCH (13:19)
[2018-05-22] MEDS ORDERED: Atorvastatin Calcium 20 MG TAB PO SCH (21:00)
== END 2018-05-22 14:50 | disposition home or self-care (01) | DRG 65 ==
LOC: ERS 21:22 → 2SE 05-20 00:57
PROVIDERS: ADMIT Family Medicine; ATTEND Family Medicine
PROC: 30233N1 Transfusion of Nonautologous Red Blood Cells into Peripheral Vein, Percutaneous Approach (ICD-10-PCS; principal; 2018-05-20)
DX: I63.9 Cerebral infarction, unspecified (principal); I13.0 Hypertensive heart and chronic kidney disease with heart failure and stage 1 through stage 4 chronic kidney disease, or unspecified chronic kidney disease; N18.4 Chronic kidney disease, stage 4 (severe); I50.32 Chronic diastolic (congestive) heart failure; K92.2 Gastrointestinal hemorrhage, unspecified; R29.810 Facial weakness; R47.81 Slurred speech; E11.22 Type 2 diabetes mellitus with diabetic chronic kidney disease; I48.91 Unspecified atrial fibrillation; Z79.82 Long term (current) use of aspirin; Z79.01 Long term (current) use of anticoagulants
CPT/HCPCS: 36415; 36416; 70450; 70551; 80048; 80053; 80061; 81001; 84484; 85025; 85610; 85730; 87077; 87086; 87186; 93005; 93306; 93880; J0696; J1825; J1940; J2060; J7050

== ENCOUNTER 2018-07-08 06:58 | Day surgery (SDC) | payer MEDICARE ==
[2018-06-25 16:46] VITALS: BMI 39.7
[2018-07-08] MEDS ORDERED: PROPOFOL 40 ML ONE (09:21)
[2018-07-08] MEDS ORDERED: PROPOFOL 200 MG/20 ML VIAL ONE (13:13)
--- NOTE | 2018-07-09 20:51 | ECHO ---
DATE OF PROCEDURE: 07/08/18 INDICATION FOR PROCEDURE: 68-year-old gentleman with intermittent atrial fibrillation. He underwent a Watchman device in the le ft atrial appendage. He still remains on oral anticoagulation. He was advised to undergo a transesoph ageal echocardiogram to ensure there was well seating of the Watchman device and determine whether or not there may be any parth device leaks. He was taken to the Recovery Room where he underwent short a cting Propofol. The transesophageal probe was easily passed down the distal esophagus. The impressions on the echocardiogram are as follows 1. Small parth device leak around the Watchman device. 2. Normal left ventricular systolic function. Ejection fraction was 60-65%. 3. Mild tricuspid valve regurgitation. 4. Mild to moderate mitral valve regurgitation. 5. Trivial aortic valve regurgitation. 6. Left atrial dilatation at 4.6 cm. 7. Possible very small patent foramen ovale with a left to right shunt. This is very trivial. There were no complications or difficulties encountered.
--- NOTE | 2018-07-09 20:54 | DIS ---
DISCHARGE SUMMARY: ADMITTING DIAGNOSIS: 1. Intermittent atrial fibrillation. 2. Status post Watchman device. He was advised to undergo a transesophageal echocardiogram for e valuation of the Watchman device to ensure it was well seated and to ensure there was no evidence of perivalvular leaks in hopes that the patient could stop is Eliquis. He is approximately six weeks out after his device was implanted. He also has had radiofrequency ablations in 1999 and 2012 for his at rial fibrillation. He also has a history of hypercholesterolemia, hypertension. History of a CVA and hypertension. DISCHARGE DIAGNOSIS: Same. PROCEDURES DURING HOSPITALIZATION: Transesophageal echocardiogram. DISCHARGE MEDICATIONS: Will be the same as admission medications. These include Eliquis 2.5 mg bid, Zolpidem, Pantoprozole, iron, hydralazine, Calcitriol, Amlodipine 10 mg a day, Diltiazem 120 mg a day, Losartan, Tramadol, Fu rosemide 20 mg a day, Atorvastatin, Coreg 12.5 mg b.i.d., Toujeo. I will see her back in the office i n the next one to two months. He will continue routine followups with the rice dryer mechanic and italia mcdnoald see them in the next two to four weeks or as already directed by their staff. HOSPITAL COURSE: This is a very pleasant 68-year-old gentleman who has a history of intermittent atrial fibrillation. He suffered a CVA in the past back in April 2018 due to a right middle cerebral artery thrombosis or embolization most likely associated with his atrial fibrillation. He underwent a Watchman device. He continues on Eliquis. He was advised to undergo a transesophageal echocardiogram today to see whet her or not there was any parth device leak. If not, then perhaps he could get off the Eliquis and resu me his other medications such as the aspirin and Plavix; however, there does appear to be a small ki k. We will discuss this with the rice dryer mechanic but at this time we will continue his same medic ations. He will see the rice dryer mechanic in the next couple of weeks. Otherwise, he has remained s table and is ready for discharge once he is awake and alert.
== END 2018-07-08 10:44 | disposition home or self-care (01) ==
LOC: CCL 06:58
PROVIDERS: ATTEND Internal Medicine Cardiovascular Disease
PROC: B245ZZ4 Ultrasonography of Left Heart, Transesophageal (ICD-10-PCS; principal; 2018-07-08)
DX: I48.0 Paroxysmal atrial fibrillation (principal); I69.392 Facial weakness following cerebral infarction; I11.0 Hypertensive heart disease with heart failure; I50.9 Heart failure, unspecified; E11.9 Type 2 diabetes mellitus without complications; Z95.818 Presence of other cardiac implants and grafts; Z79.01 Long term (current) use of anticoagulants; Z79.899 Other long term (current) drug therapy; Z79.4 Long term (current) use of insulin
CPT/HCPCS: 36416; 93312; J2704

== ENCOUNTER 2018-08-08 16:09 | Outpatient (CLI) | payer MEDICARE ==
--- NOTE | 2018-08-08 16:29 | RAD ---
EXAM: Chest 2 views: HISTORY: Hemoptysis; chronic kidney disease COMPARISON: 04/14/2018 FINDINGS: There is an enlarged but stable cardiomediastinal silhouette. There is no evidence of consolidation, mass, or pleural effusion. Degenerative changes are seen in the spine. IMPRESSION: Cardiomegaly without evidence of acute cardiopulmonary disease
== END 2018-08-08 16:10 | disposition home or self-care (01) ==
LOC: BICRAD 16:09
PROVIDERS: ATTEND Internal Medicine Medical Oncology
DX: R04.2 Hemoptysis (principal); N18.9 Chronic kidney disease, unspecified; I51.7 Cardiomegaly
CPT/HCPCS: 71046

== ENCOUNTER 2018-09-11 09:55 | Day surgery (SDC) | payer MEDICARE ==
[2018-09-10 14:27] VITALS: BMI 37.6
[2018-09-11] MEDS ORDERED: PROPOFOL 40 ML ONE (12:39)
[2018-09-11] MEDS ORDERED: PROPOFOL 200 MG/20 ML VIAL ONE (15:15)
--- NOTE | 2018-09-12 12:46 | DIS ---
DATE OF ADMISSION: 09/11/2018 DATE OF DISCHARGE: 09/11/2018 DATE OF PROCEDURE: 09/11/2018. HOSPITAL COURSE: He was seen today in the outpatient facility to undergo a transesophageal echocardiogram to evaluate the Watchman device which has been placed in the left atrial appendage due to his intermittent atrial fibrillation with hopes that he would have a good occlusion and sealing of the device. He did undergo a transesophageal echocardiogram in June, which showed a small parth-device leak. He was advised to undergo a repeat echocardiogram today to determine whether or not he could stop taking oral anticoagulation. ADMITTING DIAGNOSES: Included intermittent atrial fibrillation, status post Watchman device; status post previous transesophageal cardiogram for evaluation of perivalvular leaks. Also, has a history of hypertension, hypercholesterolemia, history of CVA. DISCHARGE DIAGNOSES: Included intermittent atrial fibrillation, status post Watchman device; status post previous transesophageal cardiogram for evaluation of perivalvular leaks. Also, has a history of hypertension, hypercholesterolemia, history of CVA. PROCEDURES: Include transesophageal echocardiogram. DISCHARGE MEDICATIONS: Same as his admission medications that include; Eliquis 2.5 mg b.i.d., zolpidem, pantoprazole, iron, hydralazine, calcitriol, amlodipine 10 mg a day, Diltiazem 120 mg a day, Losartan, Tramadol, Furosemide 20 mg a day, atorvastatin, Coreg 12.5 mg b.i.d. He is on hydralazine 100 mg b.i.d. He takes insulin, Toujeo SoloStar, he takes 30 units once a day. He takes iron tablets, losartan 25 mg a day; Protonix; sildenafil 20 mg as directed. Tamsulosin 0.4 mg daily as well as his tramadol and zolpidem. Aspirin 81 mg a day; Atorvastatin 40 mg a day; calcitriol is one capsule 0.5 mcg; Coreg is 6.25 mg tablets, he takes one tablet twice a day. He is also on Plavix 75 mg a day. I do not think he is taking his Eliquis any longer, but takes Plavix, which is 75 mg a day, and diltiazem is 120 mg a day. His followup will be with EP in the next 2 to 4 weeks and I will see him back in the office in approximately two months. There were no complications or difficulties during his procedure. He was found to have still a very small parth-device leak around the device. He has suffered a CVA in the past and based on this in the non closure of the device completely, we will continue his oral anticoagulation with the aspirin and Plavix. He will follow up with the outsole caser as noted above. Please note, I think he is still taking the Eliquis 2.5 mg twice a day as well as the Plavix and aspirin. I will discuss this with the patient specifically and make sure exactly which medications he is taking at this time, whether he is taking Eliquis and aspirin or Plavix and aspirin. Job ID: [id number] MTDSal
--- NOTE | 2018-09-13 08:36 | ECHO ---
TRANSESOPHAGEAL ECHOCARDIOGRAM REPORT: DATE OF EXAM: 09/11/2018. INDICATION FOR PROCEDURE: A 68-year-old patient who has a history of intermittent atrial fibrillation who has undergone a watch man device into the left atrial appendage. He remains on oral anticoagulation and was advised to und ergo a transesophageal cardiogram to ensure that was well seating of the watchman device and determin e whether or not there may be any appearing device leaks. He did undergo a previous transesophageal echocardiogram in June of this year which did show a very small leak. PROCEDURE: He was taken to the recovery room where he underwent short-acting propofol anesthesia. The transesop hageal probe was easily passed down the distal esophagus. Impressions were as follows. 1. There remains a very small peridevice leak around the watchman device. Otherwise, it appears to b e well seated with no other evidence, just 1 small area in the lateral aspect which appears to be ki jeremy. 2. Normal left ventricular systolic function. Ejection fraction was 60-65%. 3. Mild tricuspid valve regurgitation. 4. Mild to moderate mitral valve regurgitation. 5. Trace aortic valve regurgitation. 6. Left atrial dilatation about approximately 4.5 to 5.0 cm. 7. No evidence of patent foramen ovale. On the previous echocardiogram, there was a small patent for amen ovale, but it was very trivial at that time. I do not see evidence of patent foramen ovale at t his time. The patient tolerated the procedure well without difficulties or complications. IMPRESSION: As above. There still remains a very small peridevice leak around the watchman device. Will continu e his medical treatments. POS: [facility]
== END 2018-09-11 14:00 | disposition home or self-care (01) ==
LOC: SDC 09:55
PROVIDERS: ATTEND Internal Medicine Cardiovascular Disease
PROC: B245ZZ4 Ultrasonography of Left Heart, Transesophageal (ICD-10-PCS; principal; 2018-09-11)
DX: T82.538A Leakage of other cardiac and vascular devices and implants, initial encounter (principal); I48.0 Paroxysmal atrial fibrillation; I08.3 Combined rheumatic disorders of mitral, aortic and tricuspid valves; I10 Essential (primary) hypertension; E11.9 Type 2 diabetes mellitus without complications; E78.00 Pure hypercholesterolemia, unspecified; Z86.73 Personal history of transient ischemic attack (TIA), and cerebral infarction without residual deficits; Z88.8 Allergy status to other drugs, medicaments and biological substances; Z91.018 Allergy to other foods
CPT/HCPCS: 93312; J2704

== ENCOUNTER 2019-03-05 08:47 | Day surgery (SDC) | payer MEDICARE ==
[2019-03-04 09:41] VITALS: BMI 37.6
[2019-03-05 09:23] LABS: #Eosinphils 0.3 thou/uL (0.0-0.7); #Lymphocytes 1.3 thou/uL (1.20-3.40); #Monocytes 0.9 thou/uL (0.11-0.59); #Neutrophils 7.3 thou/uL (1.40-6.50); %Basophils 0.3 % (0.0-1.0); %Eosinophils 2.8 % (0.0-10.0); %Lymphocytes 13.4 % (21.0-51.0); %Monocytes 9.4 % (0.0-10.0); %Neutrophils 74.2 % (42.0-75.0); Hemoglobin 10.3 g/dL (14.0-18.0); Mean Corpuscular HGB CONC 32.4 g/dL (32.0-36.0); Mean Corpuscular Hemoglobin 27.6 pg (27.0-31.0); Mean Corpuscular Volume 85.2 fL (78.0-98.0); Platelet Count 270 thou/uL (130-400); RBC Distribution Width 13.1 % (11.5-14.5); Red Blood Cell (RBC) Count 3.75 mill/uL (4.70-6.10); White Blood Cell (WBC) Count 9.9 thou/uL (4.8-10.8)
[2019-03-05 09:31] LABS: INR-International Normal Ratio 1.2; PTT 31.8 SEC (22.9-36.1); Prothrombin Time 14.7 SEC (12.0-14.7)
[2019-03-05 09:38] LABS: Anion Gap 16 mmol/L (10-20); BUN (Urea Nitrogen) 35 mg/dL (8.4-25.7); Calc. Creatinine Clearance 47 mL/min (70-130); Calcium 9.2 mg/dL (7.8-10.44); Carbon Dioxide 19 mmol/L (23-31); Chloride 112 mmol/L (98-107); Estimated GFR-MDRD 24; Glucose 113 mg/dL (80-115); Potassium 4.5 mmol/L (3.5-5.1); Sodium 142 mmol/L (136-145)
[2019-03-05] MEDS ORDERED: PROPOFOL 40 ML ONE (10:02)
--- NOTE | 2019-03-05 17:51 | ECHO ---
DATE OF SERVICE: 03/05/19 REFERRING PHYSICIAN: Dr. Opal Ponce and Dr. Lg Kent REASON FOR PROCEDURE: The patient is a 68-year-old male with prior history of atrial fibrillation on anticoagulation. He is here for ALONZO after a Watchman device in May and recoiling at the end of November. Rule out intrac ardiac clots. PROCEDURE: The patient received propofol by Anesthesia specialist. After adequate level of sedation achieved, a standard transesophageal echocardiogram probe was passed into the esophagus without diff iculty. Patient tolerated the procedure well, no complications noted. RESULTS: Left atrium is normal in size about 3.3 cm in horizontal diameter. The left atrial appendage well vi sualized and contains adequately seated Watchman device. There is no periwatchman device leak noted a lthough still some echolucency posterior to the device. The interatrial septum is without significa nt defect. Four out of four pulmonary veins were seen without stenosis. The mitral valve has mild reg urgitation. Tricuspid valve has mild to moderate eccentric regurgitation noted. The aortic valve has three leaflets without regurgitation or stenosis. The pulmonary valve appears to be normal. Left jorden tricular systolic function is preserved. Wall motion and chamber size is normal. Right sided chambers are nondilated. Pericardial space without effusion. The visualized portion of ascending and descen ding aorta without aneurysm, dissection or significant atheroma. CONCLUSION: 1. Adequately seated Watchman device without evidence of leak. 2. Normal left atrial size. 3. Normal left ventricular systolic function. 4. Mild MR and mild to moderate TR noted. PLAN: Stop Plavix and continue aspirin only.
== END 2019-03-05 12:00 | disposition home or self-care (01) ==
LOC: CCL 08:47
PROVIDERS: ATTEND Internal Medicine Cardiovascular Disease
PROC: B24BZZ4 Ultrasonography of Heart with Aorta, Transesophageal (ICD-10-PCS; principal; 2019-03-05)
DX: I48.19 Other persistent atrial fibrillation (principal); I08.1 Rheumatic disorders of both mitral and tricuspid valves; E11.9 Type 2 diabetes mellitus without complications; I11.0 Hypertensive heart disease with heart failure; I50.30 Unspecified diastolic (congestive) heart failure; Z86.73 Personal history of transient ischemic attack (TIA), and cerebral infarction without residual deficits; Z79.02 Long term (current) use of antithrombotics/antiplatelets; Z79.4 Long term (current) use of insulin; Z79.82 Long term (current) use of aspirin; Z79.899 Other long term (current) drug therapy; Z88.8 Allergy status to other drugs, medicaments and biological substances; Z91.018 Allergy to other foods; Z95.818 Presence of other cardiac implants and grafts
CPT/HCPCS: 80048; 85025; 85610; 85730; 93005; 93010; 93312; J2704

== ENCOUNTER 2019-06-17 11:32 | Outpatient (CLI) | payer MEDICARE ==
--- NOTE | 2019-06-18 09:56 | MRI ---
MRI OF THE PROSTATE WITHOUT CONTRAST: HISTORY: Prostate cancer. Poor GFR. TECHNIQUE: Multiplanar, multisequence MRI images were obtained of the prostate without contrast. FINDINGS: There is mild hypertrophy of the central gland consistent with BPH. Prostate volume is approximately 37 mL. No suspicious low T2 signal lesions are seen in the central gland or peripheral zone of the prostate. The diffusion sequences and ADC map are limited secondary to air and stool in the patient's rectum wh ich produces artifact. No obvious restricted diffusion is seen in the peripheral zone of the prostat e. No obvious low signal is seen in the ADC map. No pelvic adenopathy is seen. The seminal vesicles and neurovascular bundles appear intact. The osseous structures show no signal abnormality. IMPRESSION: PIRADS category 2 - low likelihood that a clinically significant cancer is present. POS: [facility]
== END 2019-06-17 11:33 | disposition home or self-care (01) ==
LOC: TBSIIMAG 11:32
PROVIDERS: ATTEND Urology
DX: C61 Malignant neoplasm of prostate (principal)
CPT/HCPCS: 72195

== ENCOUNTER 2019-09-19 07:32 | Outpatient (CLI) | payer MEDICARE, OTHER ==
[2019-09-20 13:07] LABS: SARS-CoV-2 MS2 Positive; SARS-CoV-2 N Gene Negative; SARS-CoV-2 S Gene Negative; SARS-CoV-2 orf1ab Negative
== END 2019-09-19 07:33 | disposition home or self-care (01) ==
LOC: LABBT 07:32
PROVIDERS: ATTEND Internal Medicine
DX: Z01.812 Encounter for preprocedural laboratory examination (principal); Z11.59 Encounter for screening for other viral diseases; D12.6 Benign neoplasm of colon, unspecified; D64.9 Anemia, unspecified
CPT/HCPCS: 87635; U0003

== ENCOUNTER 2019-09-23 05:59 | Day surgery (SDC) | payer MEDICARE ==
[2019-09-18 10:28] VITALS: BMI 35.1
[2019-09-23] MEDS ORDERED: Fentanyl 100 MCG/2 ML VIAL ONE (07:51)
--- NOTE | 2019-09-23 09:19 | OP ---
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 PROCEDURE PERFORMED: Colonoscopy with snare polypectomy. INDICATIONS: 1. History of colon polyps. 2. Last colonoscopy on March 2018, was incomplete due to poor bowel preparation. MEDICATIONS: See Anesthesia record. FINDINGS: After discussion of the risks, benefits, and alternatives of the procedure, informed consent was obtained and witnessed. Preendoscopic cardiopulmonary examination was satisfactory. Time-out was performed before sedation was achieved. Sedation was achieved with Anesthesia assistance in the endoscopy unit. Digital rectal exam was performed, which demonstrated external hemorrhoids. A Pentax adult colonoscope was inserted into the anus and passed forward to the cecum in the usual fashion. Advancement of the scope to the cecum was quite difficult due to tortuosity of the colon and looping of the colonoscope. We were able to reach the cecal base using a loop reduction and manual pressure. It was identified by the appendiceal orifice as well as the ileocecal valve. The terminal ileum was not intubated. The colonoscope was slowly withdrawn in a gradual and circumferential manner with careful examination of the entire colonic mucosa. The quality of the prep was adequate. In the ascending colon, there was a medium-sized nonbleeding arteriovenous malformation. No endoscopic therapy was applied. In the transverse colon, there was a single polyp measuring about 3 mm in diameter. This was completely removed with cold snare and retrieved for pathology. The remainder of the colonic mucosa appeared normal throughout. Retroflexion in the rectum demonstrated small internal hemorrhoids. The colonoscope was completely withdrawn, and the patient allowed to recover. The patient tolerated the procedure well. There were no immediate postprocedure complications. IMPRESSION: 1. A 3 mm sessile polyp in the transverse colon, completely removed with cold snare and retrieved for pathology. 2. Medium-sized nonbleeding arteriovenous malformation in the ascending colon. 3. Tortuous colon. 4. Internal and external hemorrhoids. RECOMMENDATIONS: 1. Follow up pathology on the colon polyp. 2. Recall for surveillance colonoscopy in 7 years. Job ID: [id number]
[2019-09-23] MEDS ORDERED: Lidocaine 1% PF 5 ML VIAL ONE (14:47)
[2019-09-23] MEDS ORDERED: PROPOFOL 200 MG/20 ML VIAL ONE (14:47)
== END 2019-09-23 09:11 | disposition home or self-care (01) ==
LOC: SDC 05:59
PROVIDERS: ATTEND Internal Medicine
PROC: 0DBL8ZX Excision of Transverse Colon, Via Natural or Artificial Opening Endoscopic, Diagnostic (ICD-10-PCS; principal; 2019-09-23)
DX: Z09 Encounter for follow-up examination after completed treatment for conditions other than malignant neoplasm (principal); D12.3 Benign neoplasm of transverse colon; K55.20 Angiodysplasia of colon without hemorrhage; K64.4 Residual hemorrhoidal skin tags; K64.8 Other hemorrhoids; D64.9 Anemia, unspecified; E11.9 Type 2 diabetes mellitus without complications; E78.00 Pure hypercholesterolemia, unspecified; Z86.010 Personal history of colon polyps; Z86.73 Personal history of transient ischemic attack (TIA), and cerebral infarction without residual deficits; Z87.891 Personal history of nicotine dependence; Z79.02 Long term (current) use of antithrombotics/antiplatelets; Z79.4 Long term (current) use of insulin; Z79.82 Long term (current) use of aspirin; Z79.899 Other long term (current) drug therapy; Z88.6 Allergy status to analgesic agent; Z91.018 Allergy to other foods
CPT/HCPCS: 36416; 88305; J2001; J2704; J3010

== ENCOUNTER 2020-11-02 13:09 | Outpatient (CLI) | payer MEDICARE ==
[2020-11-02 14:28] LABS: Hemoglobin 11.8 g/dL (13.5-17.5); Mean Corpuscular HGB CONC 31.2 g/dL (32.0-36.0); Mean Corpuscular Hemoglobin 27.4 pg (27.0-33.0); Mean Corpuscular Volume 87.7 fl (81.2-95.1); Mean Platelet Volume 10.9 fl (7.4-10.4); Platelet Count 237 10x3/uL (150-450); Red Blood Cell (RBC) Count 4.31 10x6/uL (4.32-5.72); White Blood Cell (WBC) Count 10.9 10x3/uL (3.5-10.5)
[2020-11-02 14:34] LABS: Bilirubin Neg (Negative); Blood, Urine Negative (Negative); Glucose, Urine (Dipstick) Normal (Negative); Ketone, Urine Negative (Negative); Leukocyte 25 (Negative); Nitrite Positive (Negative); Protein, Urine (Dipstick) 30 mg/dl (Neg-Trace); Specific Gravity, Urine 1.015 (1.002-1.036); Urobilinogen Normal mg/dL (Less than 2)
[2020-11-02 14:35] LABS: Clarity Clear (Clear)
[2020-11-02 14:39] LABS: Anion Gap 15 mmol/L (10-20); BUN (Urea Nitrogen) 54 mg/dL (8.4-25.7); Calc. Creatinine Clearance 0 mL/min (70-130); Calcium 10.3 mg/dL (7.8-10.44); Carbon Dioxide 15 mmol/L (23-31); Chloride 117 mmol/L (98-107); Glucose 77 mg/dL (80-115); Potassium 4.5 mmol/L (3.5-5.1); Sodium 142 mmol/L (136-145)
[2020-11-02 14:41] LABS: INR-International Normal Ratio 1.1; PTT 25.8 sec (22.0-33.0); Prothrombin Time 11.9 sec (9.5-12.1)
[2020-11-02 15:45] LABS: Bacteria/HPF 4+ HPF (None Seen); RBC/HPF 0-3 HPF (0-3); Squamous Epithelial 0-3 HPF (0-3)
[2020-11-03 13:26] LABS: SARS-CoV-2 PCR by NAA Not Detected (NotDetected)
== END 2020-11-02 13:10 | disposition home or self-care (01) ==
LOC: LABBT 13:09
PROVIDERS: ATTEND Urology
DX: Z01.818 Encounter for other preprocedural examination (principal); C61 Malignant neoplasm of prostate; N40.1 Benign prostatic hyperplasia with lower urinary tract symptoms; N52.01 Erectile dysfunction due to arterial insufficiency; Z20.822 Contact with and (suspected) exposure to COVID-19
CPT/HCPCS: 80048; 81001; 85027; 85610; 85730; 87086; 93005; U0003; U0005; 93010

== ENCOUNTER 2020-11-05 11:43 | Inpatient (IN) | payer MEDICARE ==
[2020-11-05 12:47] LABS: #Lymphocytes 1.4 thou/uL (1.20-3.40); #Neutrophils 12.7 thou/uL (1.40-6.50); %Basophils 0.2 % (0.0-1.0); %Eosinophils 0.2 % (0.0-10.0); %Lymphocytes 8.9 % (21.0-51.0); %Monocytes 6.7 % (0.0-10.0); %Neutrophils 83.9 % (42.0-75.0); Hemoglobin 7.7 g/dL (14.0-18.0); Mean Corpuscular HGB CONC 33.5 g/dL (32.0-36.0); Mean Corpuscular Hemoglobin 29.9 pg (27.0-31.0); Mean Corpuscular Volume 89.4 fL (78.0-98.0); Mean Platelet Volume 8.6 fL (7.4-10.4); Platelet Count 174 thou/uL (130-400); RBC Distribution Width 14.2 % (11.5-14.5); Red Blood Cell (RBC) Count 2.57 mill/uL (4.70-6.10); White Blood Cell (WBC) Count 15.1 thou/uL (4.8-10.8)
[2020-11-05] MEDS ORDERED: Ondansetron PF 4 MG/2 ML Vial IVP PRN (15:53)
[2020-11-05] MEDS ORDERED: Dextrose 50% Abboject 50 ML SYRINGE SLOW IVP PRN (15:53)
[2020-11-05] MEDS ORDERED: Dextrose 5% in Water 1,000 ML IV PRN (16:33)
[2020-11-05] MEDS ORDERED: HumaLOG 300 UNITS/3 ML VIAL SC PRN (16:33)
[2020-11-05 16:54] LABS: Hemoglobin 7.6 g/dL (14.0-18.0)
[2020-11-05 17:15] LABS: Anion Gap 14 mmol/L (10-20); BUN (Urea Nitrogen) 108 mg/dL (8.4-25.7); Calc. Creatinine Clearance 0 mL/min (70-130); Calcium 8.9 mg/dL (7.8-10.44); Carbon Dioxide 15 mmol/L (23-31); Chloride 120 mmol/L (98-107); Glucose 187 mg/dL (80-115); Potassium 4.5 mmol/L (3.5-5.1); Sodium 144 mmol/L (136-145)
[2020-11-05 17:29] VITALS: BMI 37.1
[2020-11-05] MEDS: Carvedilol 6.25 MG TAB PO SCH (18:47)
[2020-11-05] MEDS: Atorvastatin Calcium 40 MG TAB PO SCH (20:40)
[2020-11-05 22:20] LABS: Hemoglobin 6.6 g/dL (14.0-18.0)
[2020-11-06] MEDS: Pantoprazole 80 MG, Admixture Fee 1 EACH in Sodium Chloride 0.9% 100 ML IVPB SCH ×2 (00:15→13:00)
[2020-11-06 05:02] LABS: Hemoglobin 6.4 g/dL (14.0-18.0)
[2020-11-06 05:20] LABS: Anion Gap 12 mmol/L (10-20); BUN (Urea Nitrogen) 111 mg/dL (8.4-25.7); Calc. Creatinine Clearance 40 mL/min (70-130); Calcium 8.7 mg/dL (7.8-10.44); Carbon Dioxide 15 mmol/L (23-31); Chloride 120 mmol/L (98-107); Glucose 195 mg/dL (80-115); Potassium 4.1 mmol/L (3.5-5.1); Sodium 143 mmol/L (136-145)
[2020-11-06] MEDS ORDERED: Ketamine 50 MG/ML (10ML VIAL) ONE (07:24)
[2020-11-06] MEDS ORDERED: PHENYLEPHRINE-NS 100 MCG/ML 10 ML SYRINGE ONE (08:14)
[2020-11-06] MEDS ORDERED: PROPOFOL 200 MG/20 ML VIAL ONE (08:14)
[2020-11-06] MEDS ORDERED: Sodium Chloride 0.9% 10 ML ONE (08:36)
[2020-11-06] MEDS ORDERED: Promethazine HCl 25 MG/ML VIAL IM PRN (08:46)
[2020-11-06] MEDS ORDERED: Promethazine HCl 25 MG/ML VIAL IVPB PRN (08:46)
[2020-11-06] MEDS ORDERED: Ondansetron HCl/PF 4 MG/2 ML Vial IVP PRN (08:46)
[2020-11-06] MEDS: Calcitriol 0.25 MCG CAP PO SCH (09:47)
[2020-11-06] MEDS: Carvedilol 6.25 MG TAB PO SCH ×2 (09:47→17:20)
[2020-11-06] MEDS: HumaLOG 300 UNITS/3 ML VIAL SC PRN (11:21)
[2020-11-06 11:30] LABS: Bilirubin Negative (Negative); Blood, Urine Negative (Negative); Clarity Clear (Clear); Glucose, Urine (Dipstick) Normal (Negative); Ketone, Urine Negative (Negative); Leukocyte 25 Leu/uL (Negative); Nitrite Negative (Negative); Protein, Urine (Dipstick) Negative (Neg-Trace); RBC/HPF 0-3 HPF (0-3); Specific Gravity, Urine 1.014 (1.002-1.036); Urobilinogen Normal mg/dL (Less than 2)
[2020-11-06 11:31] LABS: Bacteria/HPF None Seen HPF (None Seen); Squamous Epithelial None Seen HPF (0-3); WBC/HPF 0-3 HPF (0-3)
[2020-11-06 13:47] LABS: Hemoglobin 6.7 g/dL (14.0-18.0)
[2020-11-06] MEDS ORDERED: Zolpidem Tartrate 5 MG TAB PO PRN (14:41)
[2020-11-06] MEDS ORDERED: Non-Formulary Item 1 EACH (Insulin Glargine,Hum.Rec.Anlog [Toujeo Solostar] 300 UNIT/ML I SQ PRN ×2 (14:41)
[2020-11-06 17:44] LABS: Glucose 182 mg/dL (80-115)
[2020-11-06] MEDS: Tamsulosin HCl 0.4 MG CAP PO SCH (20:45)
[2020-11-06] MEDS: Atorvastatin Calcium 40 MG TAB PO SCH (20:45)
[2020-11-06] MEDS: Amlodipine 10 MG TAB PO SCH (20:46)
[2020-11-06] MEDS: hydrALAZINE 25 MG TAB PO SCH (20:46)
[2020-11-06] MEDS: Lantus 1000 UNITS/10 ML VIAL SC SCH (20:47)
[2020-11-06 22:13] LABS: Glucose 173 mg/dL (80-115)
[2020-11-07] MEDS: Pantoprazole 80 MG, Admixture Fee 1 EACH in Sodium Chloride 0.9% 100 ML IVPB SCH ×2 (01:18→11:26)
[2020-11-07] MEDS: HumaLOG 300 UNITS/3 ML VIAL SC PRN ×2 (06:03→11:24)
[2020-11-07 08:14] LABS: Hemoglobin 7.2 g/dL (14.0-18.0); Mean Corpuscular HGB CONC 33.4 g/dL (32.0-36.0); Mean Corpuscular Hemoglobin 29.6 pg (27.0-31.0); Mean Corpuscular Volume 88.6 fL (78.0-98.0); Mean Platelet Volume 8.3 fL (7.4-10.4); Platelet Count 166 thou/uL (130-400); RBC Distribution Width 15.9 % (11.5-14.5); Red Blood Cell (RBC) Count 2.44 mill/uL (4.70-6.10); White Blood Cell (WBC) Count 17.1 thou/uL (4.8-10.8)
[2020-11-07 08:29] LABS: Glucose 150 mg/dL (80-115)
[2020-11-07] MEDS ORDERED: Sodium Bicarbonate 150 MEQ in Dextrose 5% in Water 1,000 ML IV SCH (08:30)
[2020-11-07] MEDS ORDERED: Lantus 1000 UNITS/10 ML VIAL SC PRN (09:00)
[2020-11-07] MEDS: Ascorbic Acid 500 mg Chewable Tablet PO SCH (09:11)
[2020-11-07] MEDS: Calcitriol 0.25 MCG CAP PO SCH (09:12)
[2020-11-07] MEDS: Carvedilol 6.25 MG TAB PO SCH ×2 (09:12→17:18)
[2020-11-07] MEDS: hydrALAZINE 25 MG TAB PO SCH ×2 (09:12→20:38)
[2020-11-07] MEDS: cefTRIAXone\\ROCEPHIN 1 GM in Sodium Chloride 0.9% 100 ML IVPB SCH (09:22)
[2020-11-07 09:29] LABS: Anion Gap 12 mmol/L (10-20); BUN (Urea Nitrogen) 85 mg/dL (8.4-25.7); Calc. Creatinine Clearance 41 mL/min (70-130); Calcium 8.5 mg/dL (7.8-10.44); Carbon Dioxide 15 mmol/L (23-31); Chloride 117 mmol/L (98-107); Glucose 184 mg/dL (80-115); Potassium 3.4 mmol/L (3.5-5.1); Sodium 141 mmol/L (136-145)
[2020-11-07] MEDS: Atorvastatin Calcium 40 MG TAB PO SCH (20:37)
[2020-11-07] MEDS: Amlodipine 10 MG TAB PO SCH (20:37)
[2020-11-07] MEDS: Tamsulosin HCl 0.4 MG CAP PO SCH (20:37)
[2020-11-07] MEDS: Lantus 1000 UNITS/10 ML VIAL SC SCH (20:39)
[2020-11-08 05:10] LABS: Anion Gap 12 mmol/L (10-20); BUN (Urea Nitrogen) 68 mg/dL (8.4-25.7); Calc. Creatinine Clearance 43 mL/min (70-130); Calcium 8.4 mg/dL (7.8-10.44); Carbon Dioxide 18 mmol/L (23-31); Chloride 113 mmol/L (98-107); Glucose 179 mg/dL (80-115); Sodium 140 mmol/L (136-145)
[2020-11-08 06:42] LABS: Hemoglobin 6.9 g/dL (14.0-18.0); MDiff Complete? YES; Mean Corpuscular HGB CONC 32.5 g/dL (32.0-36.0); Mean Corpuscular Hemoglobin 28.8 pg (27.0-31.0); Mean Corpuscular Volume 88.5 fL (78.0-98.0); Mean Platelet Volume 8.8 fL (7.4-10.4); Platelet Count 173 thou/uL (130-400); RBC Distribution Width 15.9 % (11.5-14.5); Red Blood Cell (RBC) Count 2.38 mill/uL (4.70-6.10); White Blood Cell (WBC) Count 11.4 thou/uL (4.8-10.8)
[2020-11-08 06:43] LABS: Band 9 % (5-11); Eosinophils 2 % (0-10); Lymphocytes 14 % (21-51); Monocytes 1 % (0-10); Neutrophil 74 % (42-75)
[2020-11-08] MEDS: HumaLOG 300 UNITS/3 ML VIAL SC PRN ×3 (06:45→17:12)
[2020-11-08] MEDS ORDERED: Sodium Bicarbonate 150 MEQ in Dextrose 5% in Water 1,000 ML IV SCH (08:30)
[2020-11-08] MEDS ORDERED: Potassium Chloride 20 MEQ TAB PO SCH (08:30)
[2020-11-08] MEDS: cefTRIAXone\\ROCEPHIN 1 GM in Sodium Chloride 0.9% 100 ML IVPB SCH (09:17)
[2020-11-08] MEDS: hydrALAZINE 25 MG TAB PO SCH ×2 (09:17→21:07)
[2020-11-08] MEDS: Carvedilol 6.25 MG TAB PO SCH ×2 (09:17→17:12)
[2020-11-08] MEDS: Ascorbic Acid 500 mg Chewable Tablet PO SCH (09:18)
[2020-11-08] MEDS: Calcitriol 0.25 MCG CAP PO SCH (09:18)
[2020-11-08 17:39] LABS: Glucose 189 mg/dL (80-115)
[2020-11-08] MEDS: Tamsulosin HCl 0.4 MG CAP PO SCH (21:06)
[2020-11-08] MEDS: Atorvastatin Calcium 40 MG TAB PO SCH (21:06)
[2020-11-08] MEDS: Amlodipine 10 MG TAB PO SCH (21:07)
[2020-11-08] MEDS: Lantus 1000 UNITS/10 ML VIAL SC SCH (21:11)
[2020-11-09 04:53] LABS: Hemoglobin 7.5 g/dL (14.0-18.0); Mean Corpuscular HGB CONC 34.7 g/dL (32.0-36.0); Mean Corpuscular Hemoglobin 30.6 pg (27.0-31.0); Mean Platelet Volume 8.7 fL (7.4-10.4); Platelet Count 160 thou/uL (130-400); RBC Distribution Width 15.8 % (11.5-14.5); Red Blood Cell (RBC) Count 2.45 mill/uL (4.70-6.10); White Blood Cell (WBC) Count 9.3 thou/uL (4.8-10.8)
[2020-11-09 04:57] LABS: Anion Gap 13 mmol/L (10-20); BUN (Urea Nitrogen) 55 mg/dL (8.4-25.7); Calc. Creatinine Clearance 47 mL/min (70-130); Carbon Dioxide 19 mmol/L (23-31); Chloride 110 mmol/L (98-107); Glucose 132 mg/dL (80-115); Sodium 139 mmol/L (136-145)
[2020-11-09 05:24] LABS: Eosinophils 3 % (0-10); Lymphocytes 16 % (21-51); MDiff Complete? YES; Monocytes 12 % (0-10); Neutrophil 69 % (42-75)
[2020-11-09] MEDS: Calcitriol 0.25 MCG CAP PO SCH (08:19)
[2020-11-09] MEDS: Carvedilol 6.25 MG TAB PO SCH (08:19)
[2020-11-09] MEDS: Ascorbic Acid 500 mg Chewable Tablet PO SCH (08:19)
[2020-11-09] MEDS: cefTRIAXone\\ROCEPHIN 1 GM in Sodium Chloride 0.9% 100 ML IVPB SCH (08:20)
[2020-11-09] MEDS: hydrALAZINE 25 MG TAB PO SCH (08:20)
[2020-11-09 11:55] VITALS: BP 139/63; TEMP 99.2
== END 2020-11-09 14:30 | disposition home or self-care (01) | DRG 378 ==
LOC: ERS 11:43 → 2NO 14:55
PROVIDERS: ADMIT Family Medicine; ATTEND Hospitalist
PROC: 30233N1 Transfusion of Nonautologous Red Blood Cells into Peripheral Vein, Percutaneous Approach (ICD-10-PCS; principal; 2020-11-06)
PROC: 0DB78ZX Excision of Stomach, Pylorus, Via Natural or Artificial Opening Endoscopic, Diagnostic (ICD-10-PCS; 2020-11-06)
DX: K26.4 Chronic or unspecified duodenal ulcer with hemorrhage (principal); D62 Acute posthemorrhagic anemia; N18.4 Chronic kidney disease, stage 4 (severe); I48.20 Chronic atrial fibrillation, unspecified; N25.81 Secondary hyperparathyroidism of renal origin; F43.10 Post-traumatic stress disorder, unspecified; I25.10 Atherosclerotic heart disease of native coronary artery without angina pectoris; E78.5 Hyperlipidemia, unspecified; I12.9 Hypertensive chronic kidney disease with stage 1 through stage 4 chronic kidney disease, or unspecified chronic kidney disease; E11.22 Type 2 diabetes mellitus with diabetic chronic kidney disease; G47.00 Insomnia, unspecified; E77.8 Other disorders of glycoprotein metabolism; Z98.42 Cataract extraction status, left eye; Z98.41 Cataract extraction status, right eye; Z87.891 Personal history of nicotine dependence; Z88.6 Allergy status to analgesic agent; Z91.018 Allergy to other foods; Z87.11 Personal history of peptic ulcer disease; Z87.19 Personal history of other diseases of the digestive system; Z95.818 Presence of other cardiac implants and grafts; Z79.82 Long term (current) use of aspirin; Z79.899 Other long term (current) drug therapy; Z86.73 Personal history of transient ischemic attack (TIA), and cerebral infarction without residual deficits; Z79.4 Long term (current) use of insulin; C61 Malignant neoplasm of prostate; N40.1 Benign prostatic hyperplasia with lower urinary tract symptoms; N52.01 Erectile dysfunction due to arterial insufficiency
CPT/HCPCS: 36415; 36416; 36430; 80048; 81001; 81003; 81015; 82947; 85014; 85018; 85025; 85027; 85610; 85730; 86850; 86900; 86901; 87086; 88305; 88342; 93005; 93306; 96365; 96366; C9113; J0696; J1815; J2704; J3490; J7070; P9016; U0003; U0005

== ENCOUNTER 2020-11-12 12:28 | Emergency (ER) | payer MEDICARE ==
[2020-11-12 13:01] LABS: #Eosinphils 0.2 thou/uL (0.0-0.7); #Lymphocytes 1.2 thou/uL (1.20-3.40); #Monocytes 0.8 thou/uL (0.11-0.59); #Neutrophils 5.2 thou/uL (1.40-6.50); %Basophils 0.3 % (0.0-1.0); %Eosinophils 3.2 % (0.0-10.0); %Lymphocytes 16.4 % (21.0-51.0); %Monocytes 10.5 % (0.0-10.0); %Neutrophils 69.7 % (42.0-75.0); Hemoglobin 8.9 g/dL (14.0-18.0); Mean Corpuscular HGB CONC 34.3 g/dL (32.0-36.0); Mean Corpuscular Hemoglobin 30.7 pg (27.0-31.0); Mean Corpuscular Volume 89.5 fL (78.0-98.0); Platelet Count 225 thou/uL (130-400); RBC Distribution Width 16.1 % (11.5-14.5); White Blood Cell (WBC) Count 7.5 thou/uL (4.8-10.8)
[2020-11-12 13:22] LABS: Albumin 3.3 g/dL (3.4-4.8); Alkaline Phosphatase 188 U/L (40-110); Anion Gap 15 mmol/L (10-20); BUN (Urea Nitrogen) 46 mg/dL (8.4-25.7); Bilirubin, Total 0.7 mg/dL (0.2-1.2); Calc. Creatinine Clearance 0 mL/min (70-130); Calcium 8.7 mg/dL (7.8-10.44); Carbon Dioxide 19 mmol/L (23-31); Chloride 108 mmol/L (98-107); Globulin 2.7 g/dL (2.4-3.5); Glucose 131 mg/dL (80-115); Potassium 3.1 mmol/L (3.5-5.1); Sodium 139 mmol/L (136-145)
[2020-11-12 13:23] LABS: ALT (SGPT) 31 U/L (8-55); AST (SGOT) 28 U/L (5-34)
[2020-11-12] MEDS ORDERED: Potassium Chloride 20 MEQ TAB ONE (15:30)
== END 2020-11-12 15:46 | disposition home or self-care (01) ==
LOC: ERS 12:28
DX: K92.2 Gastrointestinal hemorrhage, unspecified (principal); E87.6 Hypokalemia; I25.10 Atherosclerotic heart disease of native coronary artery without angina pectoris; I48.91 Unspecified atrial fibrillation; E11.9 Type 2 diabetes mellitus without complications; I10 Essential (primary) hypertension; Z79.82 Long term (current) use of aspirin; Z79.899 Other long term (current) drug therapy
CPT/HCPCS: 36415; 80053; 85025; 86850; 86900; 86901; 99284